=== PATIENT | male | born 1970 | race Caucasian/White ===

== ENCOUNTER 2019-08-29 09:13 | Emergency (ER) | payer MEDICAID, SELFPAY ==
--- NOTE | ~2019-08-29 | XR_ITS ---
EXAMINATION: XR chest 2V DATE: 08/29/2019 10:45 INDICATION: Shortness of breath. Epigastric abdominal pain. TECHNIQUE: Frontal and lateral views of the chest were obtained. COMPARISON: Chest 2 views 06/15/2013 FINDINGS: The chest demonstrates clear lungs without pneumonia, pleural effusion, or pneumothorax. Th e heart size is normal. There is chronic mild anterior wedging of a mid thoracic vertebral body. IMPRESSION: 1. No acute cardiopulmonary disease. Reviewed, dictated and finalized at location A.
--- NOTE | ~2019-08-29 | XR_ITS ---
EXAMINATION: XR abdomen/kub 1V INDICATION: Abdominal pain TECHNIQUE: Supine views of the abdomen were obtained on 2 radiographs. COMPARISON: 01/18/2016 FINDINGS: The bowel gas pattern is normal. No abnormal calcifications are identified. There are no di lated loops of bowel. The visualized osseous structures are unremarkable. IMPRESSION: 1. No radiographic correlate for the patient's symptoms. Reviewed, dictated and finalized at location A.
--- NOTE | 2019-08-29 09:16 | ECG_ITS ---
Measurements Intervals [place] Rate: 113 P: 55 DC: 122 QRS: 6 QRSD: 90 T: 29 QT: 302 QTc: 415 Interpretive Statements SINUS TACHYCARDIA POSSIBLE LEFT ATRIAL ENLARGEMENT NONSPECIFIC ST ELEVATION IN ANTEROLATERAL LEADS BASELINE ARTIFACT- V4, V6 ABNORMAL ECG Electronically Signed On 08-29-2019 10:37:48 CDT by Andreas Carrera D.O.
[2019-08-29 09:17] VITALS: BP 160/89; PULSE 120; RESP 19; O2SAT 100
--- NOTE | 2019-08-29 09:17 | ED.SOB ---
HPI - SOB/Dyspnea General Chief Complaint: Abdominal Pain Stated Complaint: UPPER ABD PAIN, FEELING SOB, FATIGUE Time Seen by Provider: 08/29/19 09:15 History of Present Illness HPI Narrative: Epigastric pain for the past month. Feels like pressure. Associated with bloating and early satiety. Today he also developed SOB. Related Data Home Medications Medication Instructions Recorded Confirmed allopurinol 08/29/19 indomethacin 08/29/19 08/29/19 lisinopril 08/29/19 omeprazole 20 mg PO DAILY 08/29/19 08/29/19 Allergies Allergy/AdvReac Type Severity Reaction Status Date / Time acetaminophen [From Vicodin] Allergy Rash Verified 08/29/19 09:23 hydrocodone [From Vicodin] Allergy Rash Verified 08/29/19 09:23 Review of Systems Review of Systems: All systems reviewed & are unremarkable except as noted in HPI and below Constitutional: Constitutional: Denies fever(s) ENT: Reports dizziness Cardiovascular: Cardiovascular: Denies chest pain Respiratory: Respiratory: Reports dyspnea Gastrointestinal: Gastrointestinal: Reports abdominal pain, Reports bloating, Denies constipation and Denies diarrhea Genitourinary: Genitourinary: Denies dysuria [facility] Past Medical History Medical History (Updated 08/30/19 @ 11:28 by Carmelo Raines MD) Gout HTN (hypertension) Social History Social History Gender identity (if verbalized by the patient): Male Exam Const: General: healthy appearing, no acute distress and alert Nutritional Appearance: well nourished Orientation/consciousness: patient oriented x3 HENMT: Mouth: Yes dry mucous membranes Chest: Chest palpation & inspection: normal inspection of the chest Resp: Effort & Inspection: normal respiratory effort Auscultation: clear to auscultation bilaterally Cardio: Rate: tachycardic Rhythm: regular rhythm GI: Inspection: non-distended GI Palp: Yes Soft to palpation and No Tenderness to palpation present (GI) Skin: General skin exam: normal color Neuro: General: patient oriented x3, moves all extremities, no focal motor deficits and CN's II-XI intact bilaterally Speech: normal speech Extrem: General: normal to inspection and no edema Course Vital Signs Vital signs: Vital Signs Pulse Rate 120 H 08/29/19 09:17 Respiratory Rate 19 08/29/19 09:17 Blood Pressure 160/89 H 08/29/19 09:17 Pulse Oximetry 100 08/29/19 09:17 Pulse Rate 94 08/29/19 14:10 Respiratory Rate 16 08/29/19 14:10 Blood Pressure 163/94 H 08/29/19 14:10 Pulse Oximetry 96 08/29/19 14:10 MDM - SOB/Dyspnea MDM Narrative Medical decision making narrative: Labs suggest dehydration. He also has hyperglycemia. He took a supplement with dextrose before coming in so this is difficult to inerpret. Improved with fluids. KUB wnl, does show some stool. Advised to reduce supplement use. Trial of stool softeners. follow-up with PCP for repeat labs. Medical Records Attestation: I reviewed the patient's medical records. Lab Data Attestation: I reviewed the patient's lab results. Result diagrams: 08/29/19 10:34 08/29/19 10:34 Labs: Lab Results 08/29/19 08/29/19 08/29/19 Range/Units 10:34 10:34 10:34 WBC 9.1 (4.5-10.0) K/mm3 RBC 5.78 (4.6-6.20) M/mm3 Hgb 17.7 (14.0-18.0) g/dL Hct 53.5 H (42.0-52.0) % MCV 92.6 (80-100) fl MCH 30.6 (26-34) pg MCHC 33.1 (32-36) g/dl RDW 14.0 (11.5-14.5) % Plt Count 373 (150-375) k/mm3 MPV 10.6 H (7.4-10.4) fl Immature Gran % (Auto) 0.3 (0-0.5) % Neut % (Auto) 57.4 (45.5-73.1) % Lymph % (Auto) 31.9 (18.3-44.2) % Crisp % (Auto) 7.8 (2.6-8.5) % Eos % (Auto) 2.2 (0-4.4) % Baso % (Auto) 0.4 (0.2-1.2) % Lymph # (Auto) 2.89 (0.9-3.2) K/mm3 Crisp # (Auto) 0.7 H (0.1-0.6) K/mm3 Eos # (Auto) 0.2 (0-0.3) K/mm3 Baso # (Auto) 0.0 (0.0-0.1) K/mm3 Abs Imm
[2019-08-29 10:45] LABS: Basophils Percent Auto 0.4 % (0.2-1.2); Eosinophils Absolute Auto 0.2 K/mm3 (0-0.3); Eosinophils Percent Auto 2.2 % (0-4.4); Hematocrit 53.5 % (42.0-52.0); Hemoglobin 17.7 g/dL (14.0-18.0); Immature Granulocyte Absolute 0.03 K/mm3 (0.00-0.031); Immature Granulocyte Percent A 0.3 % (0-0.5); Lymphocytes Absolute Auto 2.89 K/mm3 (0.9-3.2); Lymphocytes Percent Auto 31.9 % (18.3-44.2); Mean Corpuscular HGB Conc 33.1 g/dl (32-36); Mean Corpuscular Hemoglobin 30.6 pg (26-34); Mean Corpuscular Volume 92.6 fl (80-100); Mean Platelet Volume 10.6 fl (7.4-10.4); Monocytes Absolute Auto 0.7 K/mm3 (0.1-0.6); Monocytes Percent Auto 7.8 % (2.6-8.5); Neutrophils Absolute Auto 5.2 K/mm3 (1.3-6.7); Neutrophils Percent Auto 57.4 % (45.5-73.1); Platelet Count Result 373 k/mm3 (150-375); Red Blood Count 5.78 M/mm3 (4.6-6.20); White Blood Count 9.1 K/mm3 (4.5-10.0)
[2019-08-29 10:49] VITALS: BP 147/87; PULSE 105; RESP 12; O2SAT 99
[2019-08-29 10:56] LABS: Alanine Aminotransferase 53 U/L (4-50); Albumin Level 4.3 g/dL (3.5-5.1); Alkaline Phosphatase 84 U/L (38-126); Aspartate Amino Transferase 40 U/L (17-59); Bilirubin,Total 1.2 mg/dL (0.2-1.3); Blood Urea Nitrogen 16 mg/dL (9-20); Calcium 10.2 mg/dL (8.4-10.2); Carbon Dioxide 26 mmol/L (22-30); Chloride 98 mmol/L (98-107); Estimated CRCL calculation 58 ml/min; Estimated Glomerular Filt Rate 54; Glucose 188 mg/dL (75-110); INR 0.9; Lipase 138 U/L (23-300); Potassium 4.5 mmol/L (3.4-5.0); Prothrombin Time 12.3 Seconds (11.1-14.7); Sodium 135 mmol/L (137-145)
[2019-08-29 10:57] LABS: Partial Thromboplastin Time 23.5 SECONDS (22.3-36.8)
[2019-08-29 11:08] LABS: Troponin I < 0.012 ng/mL (0.000-0.034)
[2019-08-29 11:10] LABS: D Dimer 0.27 ug/mL (<0.48)
[2019-08-29] MEDS: SODIUM CHLORIDE 0.9% IV 1,000 ML 999 ML IV CONT (12:07)
[2019-08-29 12:08] VITALS: BP 151/81; PULSE 100; RESP 15; O2SAT 95
[2019-08-29 13:26] VITALS: BP 154/94; PULSE 99; RESP 22; O2SAT 96
[2019-08-29 13:30] LABS: Glucose Point of Care 137 (65-105)
[2019-08-29 14:10] VITALS: BP 163/94; PULSE 94; RESP 16; O2SAT 96
== END 2019-08-29 14:29 | disposition home or self-care (01) ==
PROVIDERS: Emergency Provider Emergency Medicine; PCP Internal Medicine
DX: R10.13 Epigastric pain (principal); R73.9 Hyperglycemia, unspecified; I10 Essential (primary) hypertension; M10.9 Gout, unspecified
CPT/HCPCS: 36415; 71046; 74018; 80053; 82948; 83690; 84484; 85025; 85380; 85610; 85730; 86850; 86900; 86901; 93005; 96360; 99284; J7030

== ENCOUNTER 2019-09-16 14:39 | Outpatient (CLI) | payer MEDICAID, SELFPAY ==
--- NOTE | ~2019-09-16 | CT_ITS ---
EXAMINATION: CT abdomen pelvis wo con DATE: 09/16/2019 15:06 INDICATION: Several weeks of diffuse abdominal pain TECHNIQUE: Computed tomography (CT) of the abdomen and pelvis was performed without intravenous contr ast. Automated exposure control and iterative reconstruction technique were employed. The dose-length product was 582.93 mGy-cm. COMPARISON: None FINDINGS: Lung bases are clear. Heart size is normal. No pericardial or pleural effusion. Liver, gallbladder, s pleen, pancreas, bilateral adrenal glands and kidneys are normal. A radiodense pill is present in the cecum. Bowels including the appendix are normal. No obstruction. Bladder is normal. No free intraper itoneal gas or fluid. No pathologically enlarged abdominal or pelvic lymphadenopathy. Moderate right and mild to moderate left hip osteoarthritis. Mild lumbar and moderate lower thoracic spondylosis IMPRESSION: 1. No acute intra-abdominal/pelvic process. Reviewed, dictated and finalized at location A.
== END 2019-09-16 14:40 | disposition home or self-care (01) ==
LOC: ANHIMG 14:42
PROVIDERS: PCP Internal Medicine; Visit Provider Internal Medicine
DX: R10.9 Unspecified abdominal pain (principal)
CPT/HCPCS: 74176

== ENCOUNTER 2020-01-23 03:40 | Emergency (ER) | payer OTHER, SELFPAY ==
[2020-01-23 03:43] VITALS: BP 160/84; PULSE 90; RESP 16; TEMP 36.6; O2SAT 97
--- NOTE | 2020-01-23 04:12 | ED.EAR ---
HPI - Ear Problem General Chief complaint: Ear Stated complaint: possible FB in ear Time Seen by Provider: 01/23/20 03:52 History of Present Illness HPI Narrative: Around noon yesterday he pulled his headphones from his ears and noted that the right one did not have the tip on it. Later in the day he was having some pain in that ear and developed a headache. He decided that the tip must still be in the ear so He came in. Related Data Home Medications Medication Instructions Recorded Confirmed allopurinol 08/29/19 indomethacin 08/29/19 08/29/19 lisinopril 08/29/19 omeprazole 20 mg PO DAILY 08/29/19 08/29/19 Allergies Allergy/AdvReac Type Severity Reaction Status Date / Time hydrocodone [From Vicodin] Allergy Rash Verified 01/23/20 03:49 Review of Systems Review of Systems: All systems reviewed & are unremarkable except as noted in HPI and below Constitutional: Constitutional: Denies fever(s) ENT: Denies dizziness Cardiovascular: Cardiovascular: Denies chest pain Respiratory: Respiratory: Denies dyspnea Gastrointestinal: Gastrointestinal: Denies nausea and Denies vomiting Neurologic: Reports headache(s) [facility] Past Medical History Medical History Gout HTN (hypertension) Social History Social History Gender identity (if verbalized by the patient): Male Exam Const: General: no acute distress and alert Orientation/consciousness: patient oriented x3 HENMT: Ears: Abnormal EAC present cerumen impaction on the right Eyes: Conjunctivae: conjunctivae normal Pupils: Equal, round and reactive pupils present EOM: EOMs intact bilaterally Neck: Neck: normal visual inspection Resp: Effort & Inspection: normal respiratory effort Skin: General skin exam: normal color Neuro: General: patient oriented x3, moves all extremities and CN's II-XI intact bilaterally Cranial nerves: Yes Nystagmus not present Speech: normal speech Course Vital Signs Vital signs: Vital Signs Temperature 36.6 C 01/23/20 03:43 Pulse Rate 90 01/23/20 03:43 Respiratory Rate 16 01/23/20 03:43 Blood Pressure 160/84 H 01/23/20 03:43 Pulse Oximetry 97 01/23/20 03:43 Temperature 36.6 C 01/23/20 03:43 Pulse Rate 90 01/23/20 03:43 Respiratory Rate 16 01/23/20 03:43 Blood Pressure 160/84 H 01/23/20 03:43 Pulse Oximetry 97 01/23/20 03:43 Procedures Ear Wax Removal Both Ears: Cerumenolytic Used: other (tap water) Results: Re-examined: cerumen removed completely TM Examination: TM(s) intact, normal appearance Ear Canal Exam: atraumatic Patient Tolerated Procedure: well Complications: no problems Technique: ear canal irrigated Medical Decision Making Vital Signs Vital Signs: Vital Signs Temperature 36.6 C 01/23/20 03:43 Pulse Rate 90 01/23/20 03:43 Respiratory Rate 16 01/23/20 03:43 Blood Pressure 160/84 H 01/23/20 03:43 Pulse Oximetry 97 01/23/20 03:43 Temperature 36.6 C 01/23/20 03:43 Pulse Rate 90 01/23/20 03:43 Respiratory Rate 16 01/23/20 03:43 Blood Pressure 160/84 H 01/23/20 03:43 Pulse Oximetry 97 01/23/20 03:43 Discharge Plan Discharge Clinical Impression: Bilateral impacted cerumen Patient Disposition: Home, Self-Care Condition: Stable Instructions: Earache (ED) Prescriptions: No Action indomethacin 50 mg capsule RF: 0 allopurinol 300 mg tablet RF: 0 lisinopril 40 mg tablet RF: 0 omeprazole 20 mg Tablet,Delayed Release (Dr/Ec) 20 mg PO DAILY RF: 0 metformin 500 mg tablet 500 mg PO DAILY Qty: 14 RF: 0 Follow-up/Referrals: Enrike,Coretta Dorman MD [Primary Care Provider] -
== END 2020-01-23 04:52 | disposition home or self-care (01) ==
PROVIDERS: Emergency Provider Emergency Medicine; PCP Internal Medicine
DX: H61.23 Impacted cerumen, bilateral (principal); I10 Essential (primary) hypertension; M10.9 Gout, unspecified
CPT/HCPCS: 69209; 99282

== ENCOUNTER 2020-01-26 09:02 | Emergency (ER) | payer OTHER, SELFPAY ==
[2020-01-26] VITALS (37 sets, daily range): BP systolic 137–164; BP diastolic 81–98; PULSE 65–84; RESP 10–25; TEMP 36.1; O2SAT 95–100
--- NOTE | ~2020-01-26 | CT_ITS ---
EXAMINATION: CT brain wo con DATE: 01/26/2020 09:53 INDICATION: Headache. TECHNIQUE: Computed tomography (CT) of the head was performed without intravenous contrast. The mA wa s adjusted according to patient size. Iterative reconstruction technique was employed. The dose-lengt h product was 529.67 mGy-cm. COMPARISON: Head CT 06/15/2013 FINDINGS: There is no intracranial hemorrhage, acute infarction, or abnormal intracranial mass lesion . The ventricles are normal in size. The orbits are normal. Right maxillary sinus is small. There is mucosal thickening in the paranasal sinuses, right worse than left. The mastoid air cells are normal. The orbits are normal. IMPRESSION: 1. Normal brain. Reviewed, dictated and finalized at location A. IMPRESSION: 1. Normal brain.
--- NOTE | 2020-01-26 09:50 | PC.NURSE ---
could not draw blood at this time, pt is in ct.
--- NOTE | 2020-01-26 09:56 | PC.NURSE ---
PT IN CT ATT THIS TIME.
[2020-01-26 10:08] LABS: Basophils Percent Auto 0.3 % (0.2-1.2); Eosinophils Absolute Auto 0.3 K/mm3 (0-0.3); Eosinophils Percent Auto 3.5 % (0-4.4); Hematocrit 46.2 % (42.0-52.0); Hemoglobin 15.8 g/dL (14.0-18.0); Immature Granulocyte Absolute 0.02 K/mm3 (0.00-0.031); Immature Granulocyte Percent A 0.2 % (0-0.5); Lymphocytes Percent Auto 19.3 % (18.3-44.2); Mean Corpuscular HGB Conc 34.2 g/dl (32-36); Mean Corpuscular Hemoglobin 31.2 pg (26-34); Mean Corpuscular Volume 91.3 fl (80-100); Monocytes Absolute Auto 0.9 K/mm3 (0.1-0.6); Monocytes Percent Auto 9.3 % (2.6-8.5); Neutrophils Absolute Auto 6.3 K/mm3 (1.3-6.7); Neutrophils Percent Auto 67.4 % (45.5-73.1); Platelet Count Result 240 k/mm3 (150-375); Red Blood Count 5.06 M/mm3 (4.6-6.20); White Blood Count 9.3 K/mm3 (4.5-10.0)
[2020-01-26] MEDS: SODIUM CHLORIDE 0.9% IV 1,000 ML 999 ML IV CONT ×2 (10:14→12:10)
[2020-01-26] MEDS: KETOROLAC 15 MG/ML VIAL (*BKC) IV PUSH (10:15)
[2020-01-26 10:19] LABS: Alanine Aminotransferase 84 U/L (4-50); Albumin Level 4.1 g/dL (3.5-5.1); Alkaline Phosphatase 103 U/L (38-126); Anion Gap 5 mmol/L (8-16); Aspartate Amino Transferase 41 U/L (17-59); Bilirubin,Total 0.7 mg/dL (0.2-1.3); Blood Urea Nitrogen 24 mg/dL (9-20); Calcium 9.5 mg/dL (8.4-10.2); Carbon Dioxide 34 mmol/L (22-30); Chloride 97 mmol/L (98-107); Estimated CRCL calculation 80 ml/min; Estimated Glomerular Filt Rate > 60; Glucose 291 mg/dL (75-110); Potassium 5.7 mmol/L (3.4-5.0); Sodium 136 mmol/L (137-145)
[2020-01-26 10:29] LABS: Add Urine Microscopic? YES; Amorphous Sediment Urine Few; Appearance Urine Cloudy (Clear); Bilirubin Urine Negative (Negative); Blood Urine Negative (Negative); Color Urine Yellow (Yellow); Glucose Urine UA 3+ mg/dL (Negative); Ketones Urine Negative (Negative); Leukocyte Esterase Ur Negative LEU/UL (Negative); Mucus Urine Rare /lpf; Nitrate Urine Negative (Negative); Protein Urine Negative (Negative); RBC Urine 0-2 /hpf (0-2); Specific Grav Ur 1.028 (1.001-1.035); Urobilinogen Urine Negative mg/dL (<2.0)
[2020-01-26 10:43] LABS: Amphetamine Screen Urine Negative (Negative); Barbiturate Screen Urine Negative (Negative); Benzodiazepines Screen Urine Negative (Negative); Cannabinoid Screen Urine Negative (Negative); Cocaine Screen Urine Negative (Negative); Methadone Screen Urine Negative (Negative); Opiate Screen Urine Negative (Negative); Phencyclidine Screen Urine Negative (Negative)
[2020-01-26 11:38] LABS: Glucose Point of Care 247 (65-105)
--- NOTE | 2020-01-26 11:41 | PC.NURSE ---
SPOKE WITH BETHEL DAVIS ABOUT PT ELEVATED SUGAR, RECHECKED PT BS AT THIS TIME, BETHEL DAVIS INFORMED OF NEW SUGAR 247.
--- NOTE | 2020-01-26 11:43 | PC.NURSE ---
VERBAL ORDER FROM BETHEL DAVIS FOR ANOTHER 1L NS BOLUS.
--- NOTE | 2020-01-26 12:05 | PC.NURSE ---
BETHEL DAVIS REMINDED OF NEED TO GO SPEAK WITH PT ABOUT PLAN OF CARE.
[2020-01-26 12:10] LABS: Glucose 248 mg/dL (75-110)
[2020-01-26 13:08] LABS: Glucose Point of Care 206 (65-105)
--- NOTE | 2020-01-26 13:30 | PC.NURSE ---
MICHELL BARRIENTOS CONTACTED LAB AT THIS TIME TO ADD ON CMP, LAB CONFIRMS THAT THEY CAN RUN THE TEST.
[2020-01-26 14:43] LABS: Alanine Aminotransferase 77 U/L (4-50); Albumin Level 3.5 g/dL (3.5-5.1); Alkaline Phosphatase 84 U/L (38-126); Anion Gap 5 mmol/L (8-16); Aspartate Amino Transferase 41 U/L (17-59); Bilirubin,Total 0.6 mg/dL (0.2-1.3); Blood Urea Nitrogen 24 mg/dL (9-20); Calcium 8.9 mg/dL (8.4-10.2); Carbon Dioxide 33 mmol/L (22-30); Chloride 100 mmol/L (98-107); Estimated CRCL calculation 74 ml/min; Estimated Glomerular Filt Rate > 60; Glucose 186 mg/dL (75-110); Potassium 4.6 mmol/L (3.4-5.0); Sodium 138 mmol/L (137-145)
--- NOTE | 2020-01-26 15:14 | ED.GENADULT ---
HPI - General Adult General Chief complaint: Headache Stated complaint: headache Time Seen by Provider: 01/26/20 09:15 Source: patient Mode of arrival: ambulatory Limitations: no limitations History of Present Illness HPI narrative: Patient presents with chief complaint of headache over the past 4 days. Patient states in the beginning he also has some body aches and nausea. He denies chest pain or shortness of breath. He denies fever or chills. Patient denies productive cough. Patient states he has a history of hypertension but denies any other health issues. Patient states that he did travel to [place] 1 week ago and is unsure if he has any Covid contacts. Patient has not been tested for Covid. Patient states the headache is in the frontal region of his head and makes him photophobic. He denies loss of vision, flashes or floaters. Patient reports he does not typically have migraines so he would say this is the worst headache he has ever had. Related Data Home Medications Medication Instructions Recorded Confirmed allopurinol 08/29/19 indomethacin 08/29/19 08/29/19 lisinopril 08/29/19 omeprazole 20 mg PO DAILY 08/29/19 08/29/19 Allergies Allergy/AdvReac Type Severity Reaction Status Date / Time hydrocodone [From Vicodin] Allergy Rash Verified 01/23/20 03:49 Review of Systems Review of Systems: Narrative: CONSTITUTIONAL: Denies fever, chills, or sweats. EYES: Denies visual changes, redness, or discharge. ENT: Denies rhinorrhea, congestion, sore throat, or otalgia. CARDIOVASCULAR: Denies chest pain, palpitations, or edema. RESPIRATORY: Denies cough or dyspnea. GASTROINTESTINAL: Denies abdominal pain, nausea, vomiting, or diarrhea. GENITOURINARY: Denies dysuria or hematuria. SKIN: Denies rash or itching. MUSCULOSKELETAL: Denies back pain, myalgia, or joint pain NEUROLOGIC: Reports headache denies numbness, dizziness, or weakness. PSYCHIATRIC: Denies anxiety or depression. [facility] Past Medical History Medical History Gout HTN (hypertension) Social History Social History Gender identity (if verbalized by the patient): Male Course Vital Signs Vital signs: Vital Signs Pulse Rate 84 01/26/20 09:27 Respiratory Rate 25 H 01/26/20 09:27 Pulse Oximetry 97 01/26/20 09:27 Temperature 97.0 F L 01/26/20 10:09 Pulse Rate 69 01/26/20 13:15 Respiratory Rate 15 01/26/20 13:15 Blood Pressure 155/97 H 01/26/20 12:46 Pulse Oximetry 100 01/26/20 13:15 Medical Decision Making MDM Narrative Medical decision making narrative: Patient shows hyperglycemia on his CMP as well as hyperkalemia. Patient has received 2 L of fluid in his sodium and potassium are normalized. Patient blood sugar is now below 200. I have contacted his primary care doctor say wants the patient started on 500 mg daily Metformin. He asked that I give the patient 14 tablets so that he can adjust them as the patient gets an appointment to follow-up in his office. Patient reports his headache has improved from an emergency department. I have given him quarantine instructions to follow the health department guidelines as far as quarantine. I have informed him that he needs to follow-up with his primary care for Covid results. Patient instructed to return to emergency department if he has any emergent symptoms. Differential Diagnosis Differential Diagnosis: Hyperglycemia, DKA, flu, CVA, Covid, hyperkalemia Vital Signs Vital Signs: Vital Signs Pulse Rate 84 01/26/20 09:27 Respiratory Rate 25 H 01/26/20 09:27 Pulse Oximetry 97 01/26/20 09:27 Temperature 97.0 F L 01/26/20 10:09 Pulse Rate 69 01/26/20 13:15 Respiratory Rate 15 01/26/20 13:15 Blood Pressure 155/97 H 01/26/20 12:46 Pulse Oximetry 100 01/26/20 13:15 Lab Data Result diagrams: 01/26/20 10:03 01/26/20
[2020-01-26 16:30] LABS: SARS-CoV-2 RNA PCR Negative
== END 2020-01-26 15:42 | disposition home or self-care (01) ==
PROVIDERS: Physician Assistant; Emergency Provider Emergency Medicine; PCP Internal Medicine
DX: R51.9 Headache, unspecified (principal); E11.65 Type 2 diabetes mellitus with hyperglycemia; Z20.828 Contact with and (suspected) exposure to other viral communicable diseases; I10 Essential (primary) hypertension; M10.9 Gout, unspecified
CPT/HCPCS: 36415; 70450; 80053; 80307; 81001; 82947; 82948; 85025; 87635; 87804; 96361; 96374; 96375; 99284; C9803; J0131; J1885; J7030; U0003

== ENCOUNTER 2020-05-24 07:47 | Outpatient (CLI) | payer OTHER, SELFPAY ==
[2020-05-24 08:16] LABS: Hemoglobin A1C 6.7 % (<5.7)
== END 2020-05-24 07:48 | disposition home or self-care (01) ==
PROVIDERS: PCP Internal Medicine; Visit Provider Orthopaedic Surgery
DX: E11.9 Type 2 diabetes mellitus without complications (principal)
CPT/HCPCS: 36415; 83036

== ENCOUNTER → 2021-01-17 13:32 | Outpatient (REF) | payer OTHER, SELFPAY | LOC: ANHLAB 13:32 | PROVIDERS: PCP Internal Medicine; Visit Provider Nurse Practitioner | DX: L81.4 Other melanin hyperpigmentation (principal) | CPT/HCPCS: 88305 ==

== ENCOUNTER 2021-04-26 11:02 | Emergency (ER) | payer OTHER, SELFPAY ==
--- NOTE | ~2021-04-26 | CT_ITS ---
EXAMINATION: CT abdomen pelvis wo con EXAM DATE: 04/26/2021 12:25 INDICATION: right flank pain . TECHNIQUE: Spiral CT of the abdomen and pelvis was performed without contrast. Axial, coronal and sag ittal images were reviewed. The dose-length product (DLP) for this examination was 504.06 mGy-cm. T he exposure was tailored according to patient size (auto mA exposure control), and iterative reconstr uction (ASIR) was used as additional dose reduction technique. Comparison is made to prior examinatio n from 09/16/2019. FINDINGS: There is no nephrolithiasis or hydronephrosis. The prostate is unremarkable. The bladder is unremarkable. The liver, spleen, adrenal glands and pancreas are unremarkable. Gallbladder is u nremarkable. No biliary obstruction. There is no retroperitoneal or pelvic lymphadenopathy. There is mild scattered arteriosclerotic disease. There are no findings to suggest appendicitis. The stomach and small bowel are unremarkable. There is moderate amount of colonic stool. No free intraperitoneal gas. The heart is normal in size. T here are no pericardial or pleural effusions. The lung bases are unremarkable. The bones are unrema rkable. IMPRESSION: 1. Moderate amount of colonic stool. 2. No nephrolithiasis, hydronephrosis or acute intra-abdominal findings. Reviewed, dictated and finalized at location A. HOME CARE
[2021-04-26 11:12] VITALS: BP 150/77; PULSE 101; RESP 17; TEMP 36.6; O2SAT 100
[2021-04-26 11:33] LABS: Basophils Absolute Auto 0.1 K/mm3 (0.0-0.1); Basophils Percent Auto 0.4 % (0.2-1.2); Eosinophils Absolute Auto 0.2 K/mm3 (0-0.3); Eosinophils Percent Auto 1.7 % (0-4.4); Hematocrit 49.4 % (42.0-52.0); Hemoglobin 16.5 g/dL (14.0-18.0); Immature Granulocyte Absolute 0.07 K/mm3 (0.00-0.031); Immature Granulocyte Percent A 0.5 % (0-0.5); Immature Platelet Fraction Pct 4.9 % (0.9-11.2); Lymphocytes Absolute Auto 3.62 K/mm3 (0.9-3.2); Lymphocytes Percent Auto 26.9 % (18.3-44.2); Mean Corpuscular HGB Conc 33.4 g/dl (32-36); Mean Corpuscular Hemoglobin 30.4 pg (26-34); Mean Corpuscular Volume 91.1 fl (80-100); Mean Platelet Volume 9.8 fl (7.4-10.4); Monocytes Absolute Auto 0.9 K/mm3 (0.1-0.6); Monocytes Percent Auto 6.5 % (2.6-8.5); Neutrophils Absolute Auto 8.6 K/mm3 (1.3-6.7); Platelet Count Result 417 k/mm3 (150-375); Red Blood Count 5.42 M/mm3 (4.6-6.20); Red Cell Distribution Width 13.8 % (11.5-14.5); White Blood Count 13.5 K/mm3 (4.5-10.0)
[2021-04-26 11:42] LABS: Alanine Aminotransferase 45 U/L (4-50); Albumin Level 4.2 g/dL (3.5-5.1); Alkaline Phosphatase 85 U/L (38-126); Anion Gap 10 mmol/L (8-16); Aspartate Amino Transferase 37 U/L (17-59); Bilirubin,Total 1.5 mg/dL (0.2-1.3); Blood Urea Nitrogen 16 mg/dL (9-20); Carbon Dioxide 29 mmol/L (22-30); Chloride 93 mmol/L (98-107); Estimated CRCL calculation 62 ml/min; Estimated Glomerular Filt Rate 59; Glucose 170 mg/dL (65-110); Lipase 573 U/L (23-300); Potassium 5.4 mmol/L (3.4-5.0); Sodium 132 mmol/L (137-145)
[2021-04-26 11:44] LABS: Add Urine Microscopic? YES; Appearance Urine Clear (Clear); Bilirubin Urine Negative (Negative); Blood Urine Negative (Negative); Color Urine Yellow (Yellow); Glucose Urine UA Negative (Negative); Ketones Urine Trace mg/dL (Negative); Leukocyte Esterase Ur Negative LEU/UL (Negative); Mucus Urine Rare /lpf; Nitrate Urine Negative (Negative); Protein Urine 1+ mg/dL (Negative); RBC Urine 0-2 /hpf (0-2); Specific Grav Ur 1.021 (1.001-1.035); Squamous Epithelial Cell Urine Rare /hpf (Few); WBC Urine 0-3 /hpf
[2021-04-26] MEDS: KETOROLAC 15 MG/ML VIAL (*BKC) IV PUSH (13:38)
[2021-04-26] MEDS: ONDANSETRON INJ 4 MG/2 ML VIAL IV PUSH (13:38)
[2021-04-26 14:33] VITALS: BP 115/75; PULSE 78; RESP 15; O2SAT 100
--- NOTE | 2021-04-26 16:40 | ED.GENADULT ---
HPI - General Adult General Chief complaint: Abdominal Pain Stated complaint: back pain/abd Time Seen by Provider: 04/26/21 11:40 Source: patient Mode of arrival: ambulatory Limitations: no limitations History of Present Illness HPI narrative: Patient is a 50-year-old male with hepatitis C presenting with chief complaint of pain to the right lower quadrant and right upper quadrant accompanied by nausea for 3 days. Patient denies any fever, chills, vomiting or diarrhea. Patient reports he has had a bowel movement yesterday that was normal. Patient reports that the pain feels deep in his stomach is not tender to touch. Patient reports that he has not had any urinary symptoms. He denies any other symptoms. Related Data Home Medications Medication Instructions Recorded Confirmed lisinopril 08/29/19 omeprazole 20 mg PO DAILY 08/29/19 08/29/19 semaglutide 0.25 mg SUBCUT WEEKLY 01/17/21 Allergies Allergy/AdvReac Type Severity Reaction Status Date / Time hydrocodone [From Vicodin] Allergy Rash Verified 01/17/21 13:15 Review of Systems Review of Systems: CONSTITUTIONAL: Denies fever, chills, or sweats. EYES: Denies visual changes, redness, or discharge. ENT: Denies rhinorrhea, congestion, sore throat, or otalgia. CARDIOVASCULAR: Denies chest pain, palpitations, or edema. RESPIRATORY: Denies cough or dyspnea. GASTROINTESTINAL: Reports abdominal pain, nausea, denies vomiting, or diarrhea. GENITOURINARY: Denies dysuria or hematuria. SKIN: Denies rash or itching. MUSCULOSKELETAL: Denies back pain, joint pain, or myalgia. NEUROLOGIC: Denies headache, numbness, dizziness, or weakness. PSYCHIATRIC: Denies anxiety or depression. [facility] Past Medical History Medical History Gout HTN (hypertension) Family History Family History (Updated 01/17/21 @ 13:18 by Rosalind Powell CMA) Other Diabetes mellitus Hypertension Social History Social History (Updated 01/17/21 @ 13:23 by Rosalind Powell CMA) Smoking status: Never smoker Alcohol intake: never Substance use: never Substance use type: does not use Gender identity (if verbalized by the patient): Male Exam Narrative: GENERAL: Well-appearing, well-nourished, and in no acute distress. HEAD: Normocephalic, atraumatic. EYES: PERRLA and EOMI. CHEST: Clear to auscultation. No respiratory distress. No wheezes rales or rhonchi. No CVA tenderness. HEART: Regular rate and rhythm. ABDOMEN: Soft, nontender with palpation, nondistended, normal active bowel sounds. EXTREMITIES: Normal range of motion. No edema. SKIN: Warm, dry, no rash. NEURO: No focal deficits. Alert and oriented x3. PSYCH: Normal mood and affect. Course Vital Signs Vital signs: Vital Signs Temperature 97.9 F 04/26/21 11:12 Pulse Rate 101 H 04/26/21 11:12 Respiratory Rate 17 04/26/21 11:12 Blood Pressure 150/77 H 04/26/21 11:12 Pulse Oximetry 100 04/26/21 11:12 Temperature 97.9 F 04/26/21 11:12 Pulse Rate 78 04/26/21 14:33 Respiratory Rate 15 04/26/21 14:33 Blood Pressure 115/75 04/26/21 14:33 Pulse Oximetry 100 04/26/21 14:33 Medical Decision Making MDM Narrative Medical decision making narrative: Patient denies alcoholic intake. No findings on patient CT to suggest cause of his symptoms. Patient does have elevated lipase but no vomiting or reproducible abdominal pain.Discussed patient with Dr Hernadez. States patient is okay to go home and f/u with his PCP. He should RTER if he has worsening pain, fever, chills, or vomiting. Differential Diagnosis Differential Diagnosis: Diverticulitis, pancreatitis, kidney stone Vital Signs Vital Signs: Vital Signs Temperature 97.9 F 04/26/21 11:12 Pulse Rate 101 H 04/26/21 11:12 Respiratory Rate 17 04/26/21 11:12 Blood Pressure 150/77 H 04/26/21 11:12 Pulse Oximetry 100 04/26/21 11:12 Temperature 97.9 F 04/26/21 11:12 Puls
== END 2021-04-26 14:35 | disposition home or self-care (01) ==
PROVIDERS: Emergency Provider Emergency Medicine; PCP Internal Medicine
DX: R10.84 Generalized abdominal pain (principal); M10.9 Gout, unspecified; I10 Essential (primary) hypertension; B19.20 Unspecified viral hepatitis C without hepatic coma
CPT/HCPCS: 36415; 74176; 80053; 81001; 83690; 85025; 85055; 96374; 96375; 99284; J1885; J2405

== ENCOUNTER 2021-12-27 11:38 | Emergency (ER) | payer OTHER, SELFPAY ==
[2021-12-27] VITALS (12 sets, daily range): BP systolic 107–161; BP diastolic 72–82; PULSE 62–77; RESP 11–16; TEMP 36.9; O2SAT 98–100
--- NOTE | 2021-12-27 11:39 | ECG_ITS ---
Measurements Intervals [place] Rate: 63 P: 49 RI: 143 QRS: 14 QRSD: 89 T: 12 QT: 370 QTc: 381 Interpretive Statements SINUS RHYTHM BORDERLINE R WAVE PROGRESSION, ANTERIOR LEADS NONSPECIFIC ST ELEVATION IN ANT/HIGH LAT LEADS BORDERLINE ECG COMPARED TO ECG 08/29/2019 09:24:12 HEART RATE DECREASED Electronically Signed On 12-28-2021 20:14:18 CDT by Andreas Carrera D.O.
[2021-12-27 11:57] LABS: Glucose Point of Care 119 mg/dl (65-105)
[2021-12-27 12:03] LABS: Basophils Absolute Auto 0.1 K/mm3 (0.0-0.1); Basophils Percent Auto 0.5 % (0.2-1.2); Eosinophils Absolute Auto 0.1 K/mm3 (0-0.3); Eosinophils Percent Auto 1.3 % (0-4.4); Hematocrit 49.5 % (42.0-52.0); Hemoglobin 16.8 g/dL (14.0-18.0); Immature Granulocyte Absolute 0.02 K/mm3 (0.00-0.031); Immature Granulocyte Percent A 0.2 % (0-0.5); Lymphocytes Absolute Auto 3.08 K/mm3 (0.9-3.2); Lymphocytes Percent Auto 33.5 % (18.3-44.2); Mean Corpuscular HGB Conc 33.9 g/dl (32-36); Mean Corpuscular Hemoglobin 30.9 pg (26-34); Mean Corpuscular Volume 91.2 fl (80-100); Mean Platelet Volume 10.6 fl (7.4-10.4); Monocytes Absolute Auto 0.6 K/mm3 (0.1-0.6); Monocytes Percent Auto 6.9 % (2.6-8.5); Neutrophils Absolute Auto 5.3 K/mm3 (1.3-6.7); Neutrophils Percent Auto 57.6 % (45.5-73.1); Platelet Count Result 267 k/mm3 (150-375); Red Blood Count 5.43 M/mm3 (4.6-6.20); Red Cell Distribution Width 12.7 % (11.5-14.5); White Blood Count 9.2 K/mm3 (4.5-10.0)
[2021-12-27 12:14] LABS: Alanine Aminotransferase 251 U/L (6-50); Albumin Level 4.5 g/dL (3.5-5.1); Alkaline Phosphatase 62 U/L (38-126); Anion Gap 14 mmol/L (8-16); Aspartate Amino Transferase 168 U/L (17-59); Bilirubin,Total 1.5 mg/dL (0.2-1.3); Blood Urea Nitrogen 31 mg/dL (9-20); Calcium 9.8 mg/dL (8.4-10.2); Carbon Dioxide 19 mmol/L (22-30); Chloride 99 mmol/L (98-107); Estimated CRCL calculation 67 ml/min; Estimated Glomerular Filt Rate 58; Glucose 122 mg/dL (65-110); Potassium 4.8 mmol/L (3.4-5.0); Sodium 132 mmol/L (137-145)
[2021-12-27] MEDS: SODIUM CHLORIDE 0.9% IV 1,000 ML 999 ML IV CONT (13:10)
--- NOTE | 2021-12-27 13:15 | ED.RECABL ---
HPI - Recheck/Abnormal Lab/Rx General Chief Complaint: Recheck/Abnormal Lab/Rx Stated Complaint: Potassium in 6's per lab draw yesterday Time Seen by Provider: 12/27/21 12:34 Source: patient and RN notes reviewed Mode of arrival: ambulatory Limitations: no limitations History of Present Illness HPI narrative: This is 51 year old male who presents for evaluation of an elevated potassium. Patient has hepatitis C so he had labs drawn at [facility], and he was told today his potassium was 6. Patient states 2 weeks ago he suffered a right groin strain. He had been taking naproxen and aleve for his pain. He developed 3 days of nausea and dry heaves 6 days ago. He denies fever, chills, abdominal pain, diarrhea. He denies having nausea or vomiting in a few days now. He has continued to fast even though he feels well. HE states he fast for 16 hours a day. He denies lightheadedness or dizziness. He takes a number of supplements for his work out routine. HE denies anabolic steroid use or testosterone use. He states he drinks an energy drink that contains potassium. Related Data Home Medications Medication Instructions Recorded Confirmed lisinopril 40 mg tablet 08/29/19 omeprazole 20 mg tablet,delayed 20 mg PO DAILY 08/29/19 08/29/19 release semaglutide 0.25 mg or 0.5 mg (2 0.25 mg subcut WEEKLY 01/17/21 mg/1.5 mL) subcutaneous pen injector (Ozempic) Allergies Allergy/AdvReac Type Severity Reaction Status Date / Time hydrocodone [From Vicodin] Allergy Rash Verified 12/27/21 11:48 Review of Systems Review of Systems: All systems reviewed & are unremarkable except as noted in HPI and below Constitutional: Constitutional: Denies chills, Denies fatigue and Denies fever(s) Cardiovascular: Cardiovascular: Denies chest pain and Denies rapid heart rate Respiratory: Respiratory: Denies chest congestion and Denies cough Gastrointestinal: Gastrointestinal: Reports abdominal pain, Reports nausea and Reports vomiting Genitourinary: Genitourinary: Denies hematuria Musculoskeletal: Musculoskeletal: Denies back pain and Denies myalgias [facility] Past Medical History Medical History (Updated 12/27/21 @ 21:11 by Tania Rick MD) Gout Hepatitis C HTN (hypertension) Surgical History Surgical History (Updated 12/27/21 @ 21:12 by Tania Rick MD) History of surgery on arm Family History Family History (Updated 01/17/21 @ 13:18 by Rosalind Powell [facility]) Other Diabetes mellitus Hypertension Social History Social History (Updated 01/17/21 @ 13:23 by Rosalind Powell [facility]) Smoking status: Never smoker Alcohol intake: never Substance use: never Substance use type: does not use Gender identity (if verbalized by the patient): Male Exam Narrative: GENERAL: Well-appearing, well-nourished, and in no acute distress. HEAD: Normocephalic, atraumatic EYES: PERRLA and EOMI, conjunctiva clear without discharge THROAT:Mucous membranes moist, Oropharynx normal without erythema, exudate, peritonsillar swelling or fluctuance NECK: Supple, without lymphadenopathy or mass RESPIRATORY: No respiratory distress, Airway patent, Respirations non-labored, Clear to auscultation without rales, rhonchi or wheeze HEART: Regular rate and rhythm. No murmur heard. Normal peripheral pulses. ABDOMEN: Soft, nontender, nondistended, normal active bowel sounds. No masses. No rebound or guarding, No organomegaly. EXTREMITIES: No edema, normal strength with full range of motion. SKIN: Warm, dry, normal color without rash NEURO: Alert and oriented x3. CN 2-12 grossly intact. No focal deficits. PSYCH: Normal mood and affect. Const: General: no acute distress and alert Course Reevaluation(s) Reevaluation #1: I reviewed labs with patient. Labs shows transaminitis , hyponatremia with normal potassium. He is likely dehydrated. HE will hold his supplements Date: 12/27/21 Time: 14:21 Vital Signs Vital signs:
[2021-12-27 13:36] LABS: Creatine Kinase 279 U/L (55-170)
[2021-12-27 13:38] LABS: Appearance Urine Clear (Clear); Bilirubin Urine 1+ (Negative); Blood Urine Negative (Negative); Color Urine Yellow (Yellow); Glucose Urine UA Negative (Negative); Ketones Urine 2+ mg/dL (Negative); Leukocyte Esterase Ur Negative LEU/UL (Negative); Nitrate Urine Negative (Negative); Protein Urine Negative (Negative); Specific Grav Ur 1.015 (1.001-1.035)
[2021-12-27 13:41] LABS: INR 1.1; Prothrombin Time 13.4 Seconds (11.1-14.7)
[2021-12-27 13:42] LABS: Partial Thromboplastin Time 28.8 SECONDS (22.3-36.8)
[2021-12-27 13:46] LABS: Mucus Urine Rare /lpf; RBC Urine 0-2 /hpf (0-2); WBC Urine 0-3 /hpf
[2021-12-27 13:57] LABS: Add Urine Microscopic? YES
== END 2021-12-27 15:15 | disposition home or self-care (01) ==
PROVIDERS: Emergency Medicine; Emergency Provider General Practice; PCP Internal Medicine
DX: E86.0 Dehydration (principal); R74.01 Elevation of levels of liver transaminase levels; I10 Essential (primary) hypertension; M10.9 Gout, unspecified; Z86.19 Personal history of other infectious and parasitic diseases; R94.31 Abnormal electrocardiogram [ECG] [EKG]
CPT/HCPCS: 36415; 80053; 81001; 82550; 82948; 85025; 85610; 85730; 93005; 96360; 99283; J7030

== ENCOUNTER 2022-10-08 07:13 | Inpatient (IN) | payer OTHER, SELFPAY ==
[2022-10-08] VITALS (27 sets, daily range): BP systolic 167–208; BP diastolic 90–117; PULSE 78–118; RESP 14–22; TEMP 36.2–36.9; O2SAT 95–100; BMI 29.6
--- NOTE | ~2022-10-08 | US_ITS ---
EXAMINATION: US right upper quadrant DATE: 10/08/2022 15:20 INDICATION: pancreatitis TECHNIQUE: Multiple grayscale and Doppler ultrasound images of the right upper quadrant were obtained . COMPARISON: CT abdomen pelvis, same date. FINDINGS: The visualized portions of the pancreas are enlarged, with heterogeneous echogenicity. The liver is normal with normal echogenicity and echotexture. No surface nodularity. Normal hepatopetal f low in the main portal vein. The gallbladder is normal with no abnormal wall thickening, pericholecys tic fluid or stones, noting that the left lateral decubitus view was not obtainable. The common bile duct measures 4 mm. There was no sonographic Garcia sign. IMPRESSION: Pancreatic findings consistent with acute pancreatitis. Otherwise normal right upper quadrant ultrasound findings. Reviewed, dictated and finalized at location K.
--- NOTE | ~2022-10-08 | CT_ITS ---
EXAMINATION: CT abdomen pelvis w con DATE: 10/08/2022 08:27 INDICATION: Periumbilical abdominal pain. Right lower quadrant abdominal pain. TECHNIQUE: Computed tomography (CT) of the abdomen and pelvis was performed with 100 mL Omnipaque 350 intravenous contrast. Automated exposure control and iterative reconstruction technique were employe d. The dose-length product was 717.09 mGy-cm. COMPARISON: CT abdomen and pelvis 04/26/2021 FINDINGS: The visualized portions of the lung bases demonstrate minimal atelectasis. No pleural effus ion. The heart size is normal. No pericardial effusion. The liver, gallbladder, spleen, and adrenal g lands are normal. There is fat stranding and fluid around the pancreas, consistent with acute interst itial pancreatitis. The pancreas enhances throughout. There is a 1 mm stone in right kidney. There ar e cysts in the kidneys measuring up to 5 mm on the right. There are no dilated loops of bowel. The ap pendix is normal. There are no pathologically enlarged lymph nodes. There is a right hip arthroplasty . There is mild thoracolumbar spondylosis. IMPRESSION: 1. Acute interstitial pancreatitis. Reviewed, dictated and finalized at location A.
--- NOTE | ~2022-10-08 | XR_ITS ---
EXAMINATION: XR chest 1V portable Exam Date/Time: 10/08/2022 20:13 CDT HISTORY: elevated Trop Comparison: 08/29/2019. RESULT: Lines, tubes, and devices: None. Lungs and pleura: Low lung volumes with crowding. Otherwise clear. Cardiomediastinal silhouette: Stable. Other: No acute osseous or upper abdominal finding. IMPRESSION: No acute cardiopulmonary process. Reviewed, dictated and finalized at location K.
[2022-10-08 07:30] LABS: Basophils Absolute Auto 0.1 K/mm3 (0.0-0.1); Basophils Percent Auto 0.3 % (0.2-1.2); Eosinophils Percent Auto 0.3 % (0-4.4); Hematocrit 49.2 % (42.0-52.0); Hemoglobin 15.7 g/dL (14.0-18.0); Immature Granulocyte Absolute 0.07 K/mm3 (0.00-0.031); Immature Granulocyte Percent A 0.5 % (0-0.5); Lymphocytes Absolute Auto 1.98 K/mm3 (0.9-3.2); Lymphocytes Percent Auto 12.7 % (18.3-44.2); Mean Corpuscular HGB Conc 31.9 g/dl (32-36); Mean Corpuscular Hemoglobin 29.3 pg (26-34); Mean Corpuscular Volume 91.8 fl (80-100); Mean Platelet Volume 9.9 fl (7.4-10.4); Monocytes Absolute Auto 1.2 K/mm3 (0.1-0.6); Monocytes Percent Auto 7.4 % (2.6-8.5); Neutrophils Absolute Auto 12.3 K/mm3 (1.3-6.7); Neutrophils Percent Auto 78.8 % (45.5-73.1); Platelet Count Result 471 k/mm3 (150-375); Red Blood Count 5.36 M/mm3 (4.6-6.20); Red Cell Distribution Width 15.2 % (11.5-14.5); White Blood Count 15.5 K/mm3 (4.5-10.0)
--- NOTE | 2022-10-08 07:38 | ED.ABDPAIN ---
HPI - Abdominal Pain General Chief Complaint: Abdominal Pain Stated Complaint: abdominal and back pain Time Seen by Provider: 10/08/22 07:16 History of Present Illness HPI narrative: Patient is a 52-year-old male with a history of diabetes, hypertension presenting with abdominal pain. Patient states that about 2 hours ago he developed severe periumbilical pain that radiates into his back. States he is never had pain like this before. No nausea or vomiting. No diarrhea or constipation. No dysuria or hematuria. No fevers, chest pain, shortness of breath, cough. Denies further complaints. Related Data Home Medications Medication Instructions Recorded Confirmed famotidine 20 mg tablet 20 mg PO BID 10/08/22 10/08/22 Allergies Allergy/AdvReac Type Severity Reaction Status Date / Time hydrocodone [From Vicodin] Allergy Rash Verified 10/08/22 07:18 Review of Systems Review of Systems: All systems reviewed & are unremarkable except as noted in HPI and below PMFSH Past Medical History Medical History Diabetes Gout Hepatitis C treated HTN (hypertension) Surgical History Surgical History H/O shoulder surgery bilateral rotator cuff repairs H/O total hip arthroplasty right in July 2022 History of surgery on arm left bicep Family History Family History Mother Hypertension Diabetes mellitus Social History Social History Social History: Lifelong nonsmoker. No history of drug use. Denies alcohol use. Lives with his significant other. He is a full code. He nominates his significant other to be the individual to make medical decisions for him if he is unable. Smoking status: Never smoker Alcohol intake: never Substance use: never Substance use type: does not use Lack of Transportation: No Lack of Food: Never True Current Housing: I Have Housing Concerned About Future Housing: No Difficulty Paying Gas/Electric Bills: No Difficulty Paying for Meds: No Currently Unemployed: YES Education: High School Diploma/GED Difficulty w/ Childcare or Family Care: No Gender identity (if verbalized by the patient): Male Spiritual care concerns: No Exam Narrative: GENERAL: Moderately distressed secondary to pain HEAD: Normocephalic, atraumatic. EYES: PERRLA and EOMI. ENT: Nares clear, no rhinorrhea or epistaxis. Mucous membranes dry NECK: Supple. CHEST: Clear to auscultation. No respiratory distress. HEART: Regular rate and rhythm. ABDOMEN: Soft, tenderness periumbilical and right lower quadrant, no guarding or rebound EXTREMITIES: Normal range of motion. No edema. SKIN: Warm, dry, no rash. NEURO: No focal deficits. Alert and oriented x3. PSYCH: Normal mood and affect. Course Vital Signs Vital signs: Vital Signs Temperature 98.4 F 10/08/22 07:18 Pulse Rate 88 10/08/22 07:18 Respiratory Rate 16 10/08/22 07:18 Blood Pressure 194/103 H 10/08/22 07:18 Pulse Oximetry 100 10/08/22 07:18 Temperature 98.3 F 10/11/22 16:00 Pulse Rate 90 10/11/22 16:00 Respiratory Rate 15 10/11/22 16:00 Blood Pressure 146/88 H 10/11/22 16:00 Pulse Oximetry 98 10/11/22 16:00 Oxygen Delivery Room Air 10/11/22 12:00 Fraction of Inspired Oxygen 21 10/11/22 04:25 MDM - Abdominal Pain MDM Narrative Medical decision making narrative: Patient is a 52-year-old male presenting with 2 hours of severe abdominal pain that radiates into his back. Patient is hypertensive, his vitals are within normal limits. Exam is remarkable for the above. Blood work is concerning for a white count of 15.5, lipase of nearly 10,000. Patient is slightly hyperkalemic and he does appear to have an DARRYL. Fluids are ongoing. CT abdomen pelvis shows acute interstitial pancreat
[2022-10-08] MEDS: HYDROmorphone HCL INJ (*CRX) 1 MG/ML SYR IV PUSH ×6 (07:42→23:09)
[2022-10-08] MEDS: SODIUM CHLORIDE 0.9% IV 1,000 ML 999 ML IV CONT ×3 (07:42→08:50)
[2022-10-08 08:11] LABS: Alanine Aminotransferase 32 U/L (6-50); Albumin Level 4.4 g/dL (3.5-5.1); Alkaline Phosphatase 81 U/L (38-126); Anion Gap 14 mmol/L (8-16); Aspartate Amino Transferase 24 U/L (17-59); Bilirubin,Total 1.7 mg/dL (0.2-1.3); Blood Urea Nitrogen 21 mg/dL (9-20); Calcium 10.4 mg/dL (8.4-10.2); Carbon Dioxide 25 mmol/L (22-30); Chloride 92 mmol/L (98-107); Estimated CRCL calculation 53 ml/min; Estimated Glomerular Filt Rate 49; Glucose 218 mg/dL (65-110); Potassium 5.4 mmol/L (3.4-5.0); Sodium 131 mmol/L (137-145)
[2022-10-08] MEDS: KETOROLAC 15 MG/ML VIAL (*BKC) IV PUSH (08:52)
[2022-10-08 09:37] LABS: Lipase 9889 U/L (23-300)
[2022-10-08 10:22] LABS: Amorphous Sediment Urine Present; Appearance Urine Clear (Clear); Bacteria Urine None Seen /hpf; Bilirubin Urine Negative (Negative); Blood Urine Negative (Negative); Color Urine Yellow (Yellow); Glucose Urine UA 2+ mg/dL (Negative); Ketones Urine 2+ mg/dL (Negative); Leukocyte Esterase Ur Negative LEU/UL (Negative); Nitrate Urine Negative (Negative); Protein Urine Trace mg/dL (Negative); Squamous Epithelial Cell Urine None seen /hpf (Few); WBC Urine 0-5 /hpf; pH Urine 5.5 (5.0-9.0)
[2022-10-08 10:26] LABS: Add Urine Microscopic? YES
--- NOTE | 2022-10-08 11:16 | PC.NURSE ---
This patient, Bandar Messer, was admitted to 2 Medical Room 251-01. Patient/family oriented to hospital policies and general routines including ID bracelet, bed and alarms, visiting hours, pain management, procedures, bathroom and other care routines, personal items, smoking policy, room service/diet, and visiting hours. Information on how to activate the Rapid Response Team has been discussed. Patient/Family are encouraged to report perceived risks to care and to ask questions if they do not understand what they are told or what they should do.
--- NOTE | 2022-10-08 12:12 | PM.IMHP ---
H&P: HPI History of Present Illness Date/Time: 10/08/22 12:12 Chief Complaint: Abdominal pain Narrative: 52yo male with DM and HTN here for abdominal pain. Patient has been having a buring in his neck and chest described as 'fire' that occurs at different times and does wake him up at night. No hx of PUD. He tried his 's omeprazole without benefit. He saw his doctor who precribed a medication that was called (patient not aware of the name of the medication). He also has been taking NaBicarb at home. The symptoms have been 'lightening up' recently. He has DM for the past 3 years. He is only on metformin. He does not check his glucose values at home but last A1c 6.5. He also has HTN and intermittently checks his BP at home with BP occasionally as high as 220/110. He is compliant with his lisinopril. His physician is aware of the findings. He has been under a lot of stress with his mother in the hospital and not doing well. His last meal was yesterday noon yesterday. He denies any symptoms yesterday but this morning around 4am, awoke with epigastric abdominal pain that radiated to the back. Not had this before and is different then the symptoms he has been having for the past 2 weeks. EGD and colonoscopy in 2012 for blood in stool showing internal hemorrhoids. He still has his gallbladder. No hx of dyslipidemia. No alcohol use. No hx of drug use or IVDU. No nausea or vomiting. No fevers or chills. No diarrhea. No prior hx of pancreatitis. He presented to the ED for evaluation. In the ED, he was hypertensive but hemodynamically stable. WBC 15K, Na 131, potassium 5.4, BUN 21, Cr 1.5, Glucose 218, TB 1.[address] Abd/pelvis showing acute interstitial pancreatitis. GB appears normal. he was treated with IV fluids and narcotics. he was admitted for further care. No complaints of mouth pain, dysphagia or odynophagia. Review of Systems Review of Systems: All systems reviewed & are unremarkable except as noted in HPI and below PMFSH Past Medical History Medical History (Updated 10/08/22 @ 12:42 by Justice Baird MD) Diabetes Gout Hepatitis C treated HTN (hypertension) Surgical History Surgical History (Updated 10/08/22 @ 12:33 by Justice Baird MD) H/O shoulder surgery bilateral rotator cuff repairs H/O total hip arthroplasty right in July 2022 History of surgery on arm left bicep Family History Family History Mother Hypertension Diabetes mellitus Social History Social History (Updated 10/08/22 @ 12:35 by Justice Baird MD) Social History: Lifelong nonsmoker. No history of drug use. Denies alcohol use. Lives with his significant other. He is a full code. He nominates his significant other to be the individual to make medical decisions for him if he is unable. Smoking status: Never smoker Alcohol intake: never Substance use: never Substance use type: does not use Lack of Transportation: No Lack of Food: Never True Current Housing: I Have Housing Concerned About Future Housing: No Difficulty Paying Gas/Electric Bills: No Difficulty Paying for Meds: No Currently Unemployed: YES Education: High School Diploma/GED Difficulty w/ Childcare or Family Care: No Gender identity (if verbalized by the patient): Male Spiritual care concerns: No Meds Home Medications and Allergies Home Medications Medication Instructions Recorded Confirmed Type lisinopril 40 mg tablet 40 mg PO DAILY 08/29/19 10/08/22 History famotidine 20 mg tablet 20 mg PO BID 10/08/22 10/08/22 History metformin 500 mg tablet 500 mg PO BID 10/08/22 10/08/22 History Allergies Allergy/AdvReac Type Severity Reaction Status Date / Time hydrocodone [From Vicodin] Allergy Rash Verified 10/08/22 07:18 Vital Signs Vital Signs - 24 hr 10/08/22 07:18 10/08/22 07:20 10/08/22 07:31 Temperature 98.4 F Pulse Rate 88 Respiratory
--- NOTE | 2022-10-08 12:52 | ECG_ITS ---
Measurements Intervals [place] Rate: 90 P: 64 IA: 136 QRS: 9 QRSD: 86 T: 3 QT: 334 QTc: 410 Interpretive Statements SINUS RHYTHM BORDERLINE ST-T WAVE ABNORMALITY- INFERIOR LEADS BORDERLINE ECG COMPARED TO ECG 12/27/2021 11:53:32 NO SIGNIFICANT CHANGES Electronically Signed On 10-08-2022 18:46:41 CDT by Andreas Carrera D.O.
[2022-10-08 13:24] LABS: Anion Gap 2 mmol/L (8-16); Blood Urea Nitrogen 19 mg/dL (9-20); Calcium 8.4 mg/dL (8.4-10.2); Carbon Dioxide 28 mmol/L (22-30); Chloride 96 mmol/L (98-107); Cholesterol 207 mg/dL (0-200); Estimated CRCL calculation 65 ml/min; Estimated Glomerular Filt Rate > 60; Glucose 212 mg/dL (65-110); HDL Direct 14 mg/dL; Potassium 5.3 mmol/L (3.4-5.0); Sodium 126 mmol/L (137-145); Triglycerides 158 mg/dL (<150)
[2022-10-08 13:35] LABS: LDL Cholesterol Direct 163 mg/dL
[2022-10-08 13:41] LABS: Troponin I 0.376 ng/mL (0.000-0.034)
[2022-10-08] MEDS: SODIUM CHLORIDE 0.9% IV 1,000 ML 125 ML IV CONT (14:16)
[2022-10-08] MEDS: PANTOPRAZOLE SODIUM IV 40 MG VIAL IV PUSH ×2 (14:18→20:02)
[2022-10-08] MEDS: METOPROLOL TARTRATE 12.5 MG TABLET PO (15:10)
[2022-10-08] MEDS: ASPIRIN 81 MG CHEWABLE TABLET PO (15:10)
--- NOTE | 2022-10-08 15:14 | PC.NURSE ---
This patient, Bandar Messer, was transferred to [address] [place] [address] on 10/08/22 at 1514. Personal belongings sent with patient. Report given to [facility]. Appropriate documentation sent with patient.
--- NOTE | 2022-10-08 15:17 | PC.NURSE ---
Spoke to emergency contact Naima regarding transfer.
[2022-10-08] MEDS: hydrALAZINE HCL 20 MG/ML VIAL 10 MG IV PUSH ×2 (15:42→23:11)
--- NOTE | 2022-10-08 15:48 | PC.NURSE ---
Pt has 9/10 pain to abdomen and nausea. Notified Dr. Baird to update on pt's condition. Per MD, OK to change frequency of dilaudid 1mg IV to q3HRs PRN, and Zofran 4mg IV Q6HRs.
[2022-10-08] MEDS: ONDANSETRON INJ 4 MG/2 ML VIAL IV PUSH (16:09)
[2022-10-08 18:01] LABS: Glucose Point of Care 188 mg/dl (65-105)
[2022-10-08 18:59] LABS: Hemoglobin A1C 6.9 % (<5.7)
[2022-10-08] MEDS: METOPROLOL TARTRATE 25 MG TABLET PO (20:01)
[2022-10-08] MEDS: ASPIRIN 81 MG CHEWABLE TABLET 243 MG PO (20:27)
[2022-10-08 21:34] LABS: Anion Gap 2 mmol/L (8-16); Blood Urea Nitrogen 18 mg/dL (9-20); Calcium 8.5 mg/dL (8.4-10.2); Carbon Dioxide 29 mmol/L (22-30); Chloride 97 mmol/L (98-107); Estimated CRCL calculation 77 ml/min; Estimated Glomerular Filt Rate > 60; Glucose 177 mg/dL (65-110); Sodium 128 mmol/L (137-145)
[2022-10-08] MEDS: SODIUM CHLORIDE 0.9% IV 1,000 ML 150 ML IV CONT (21:36)
[2022-10-08] MEDS: WATER FOR IRRIGATION, STERILE 1,000 ML BOTTLE 1000 ML (21:41)
[2022-10-08 23:06] LABS: Basophils Percent Auto 0.1 % (0.2-1.2); Eosinophils Absolute Auto 0.1 K/mm3 (0-0.3); Eosinophils Percent Auto 0.4 % (0-4.4); Hematocrit 47.5 % (42.0-52.0); Hemoglobin 15.8 g/dL (14.0-18.0); Immature Granulocyte Absolute 0.07 K/mm3 (0.00-0.031); Immature Granulocyte Percent A 0.5 % (0-0.5); Lymphocytes Absolute Auto 1.68 K/mm3 (0.9-3.2); Lymphocytes Percent Auto 11.8 % (18.3-44.2); Mean Corpuscular HGB Conc 33.3 g/dl (32-36); Mean Corpuscular Hemoglobin 29.6 pg (26-34); Mean Corpuscular Volume 89.1 fl (80-100); Mean Platelet Volume 9.7 fl (7.4-10.4); Monocytes Absolute Auto 1.1 K/mm3 (0.1-0.6); Monocytes Percent Auto 7.5 % (2.6-8.5); Neutrophils Absolute Auto 11.3 K/mm3 (1.3-6.7); Neutrophils Percent Auto 79.7 % (45.5-73.1); Platelet Count Result 423 k/mm3 (150-375); Red Blood Count 5.33 M/mm3 (4.6-6.20); Red Cell Distribution Width 15.2 % (11.5-14.5); White Blood Count 14.2 K/mm3 (4.5-10.0)
[2022-10-08] MEDS: HEPARIN SODIUM 5,000 UNITS/ML VIAL 4000 UNITS IV PUSH (23:07)
[2022-10-08] MEDS: HEPARIN SOD/D5W 100 UNITS/ML 25,000 UNITS/250 ML BAG 9 UNITS IV CONT (23:08)
[2022-10-08 23:17] LABS: INR 1.1; Prothrombin Time 14.3 Seconds (11.1-14.7)
[2022-10-08 23:18] LABS: Partial Thromboplastin Time 25.5 SECONDS (22.3-36.8)
[2022-10-08 23:44] LABS: Glucose Point of Care 149 mg/dl (65-105)
[2022-10-09] VITALS (20 sets, daily range): BP systolic 145–181; BP diastolic 56–94; PULSE 81–106; RESP 14–22; TEMP 36.4–38.2; O2SAT 95–98
--- NOTE | 2022-10-09 | ECHO_ITS ---
Patient Info Name: Bandar Messer Age: 52 years : 1970 Gender: Male Ht: 69 in Wt: 200 lbs BSA: 2.12 m2 HR: 98 bpm BP: 145 / 82 mmHg Heart Rhythm: Sinus Rhythm Technical Quality: Fair Exam Date: 10/09/2022 8:09 AM Exam Location: [facility] Patient Status: Inpatient Admit Date: 10/08/2022 Staff Ordering Physician: Justice Baird MD Suspect Artist: Tali Flores RDCS Attending Provider: Justice Baird MD Exam Type: CA echo dop color flow w con Study Info Indications - CHEST BURNING Complete two-dimensional, color flow and Doppler transthoracic echocardiogram is performed with contrast to opacify the left ventricle and to improve the deliniation of the left ventricle endocardial borders. Contrast/Agitated Saline Contrast/Ag. Saline: Definity Amount: 3.00 ml Administered By: Tali Flores RDCS Existing IV Access: Yes IV Access Condition: patent with no signs of infiltration Summary 1. Left ventricular hypertrophy with vigorous systolic function and grade 1 diastolic noncompliance. 2. Trivial amounts of mitral and pulmonic valve insufficiency. 3. Small to trivial posterior pericardial effusion. Left Ventricle Left ventricular chamber dimension is normal. Left ventricular systolic function is normal, estimated at 60-65%. There is moderate concentric increased left ventricular wall thickness. The left ventricular diastolic function is grade I diastolic dysfunction. Right Ventricle Right ventricular chamber dimension is normal. Left Atria Left atrial chamber dimension is normal. Right Atria Right atrial chamber dimension is normal. Aortic Valve The aortic valve is normal. Pulmonic Valve The pulmonic valve is normal. There is trace pulmonic regurgitation. Mitral Valve The mitral valve has normal leaflets. There is trace mitral valve regurgitation. Tricuspid Valve The tricuspid valve leaflets are normal. Pericardium/Pleural There is trivial pericardial effusion. Aorta The aortic root size at the sinus of Valsalva is normal. Left Ventricular Outflow Tract Name Value Normal LVOT 2D LVOT Diameter 2.08 cm LVOT Doppler LVOT Peak Gradient 3 mmHg LVOT Mean Gradient 2 mmHg LVOT VTI 17.55 cm LVOT VTI/AV VTI Ratio 0.63 LVOT Stroke Volume 59.49 ml LVOT CO 5.15 l/min LVOT CI 2.42 L/min/m2 Pulmonic Valve Name Value Normal RVOT Doppler RVOT Peak Gradient 2 mmHg PV Doppler PV Peak Gradient 5 mmHg Mitral Valve Name Value Normal
[2022-10-09] MEDS: HYDROmorphone HCL INJ (*CRX) 1 MG/ML SYR IV PUSH ×6 (02:11→21:08)
[2022-10-09] MEDS: SODIUM CHLORIDE 0.9% IV 1,000 ML 150 ML IV CONT ×3 (04:06→18:42)
[2022-10-09 05:21] LABS: Basophils Percent Auto 0.2 % (0.2-1.2); Eosinophils Absolute Auto 0.1 K/mm3 (0-0.3); Eosinophils Percent Auto 0.7 % (0-4.4); Hematocrit 46.5 % (42.0-52.0); Hemoglobin 15.2 g/dL (14.0-18.0); Immature Granulocyte Absolute 0.06 K/mm3 (0.00-0.031); Immature Granulocyte Percent A 0.5 % (0-0.5); Lymphocytes Absolute Auto 1.74 K/mm3 (0.9-3.2); Lymphocytes Percent Auto 13.9 % (18.3-44.2); Mean Corpuscular HGB Conc 32.7 g/dl (32-36); Mean Corpuscular Hemoglobin 29.4 pg (26-34); Mean Corpuscular Volume 89.9 fl (80-100); Mean Platelet Volume 9.8 fl (7.4-10.4); Monocytes Absolute Auto 0.9 K/mm3 (0.1-0.6); Monocytes Percent Auto 7.2 % (2.6-8.5); Neutrophils Absolute Auto 9.7 K/mm3 (1.3-6.7); Neutrophils Percent Auto 77.5 % (45.5-73.1); Platelet Count Result 394 k/mm3 (150-375); Red Blood Count 5.17 M/mm3 (4.6-6.20); Red Cell Distribution Width 15.4 % (11.5-14.5); White Blood Count 12.5 K/mm3 (4.5-10.0)
[2022-10-09 05:32] LABS: Partial Thromboplastin Time 30.2 SECONDS (22.3-36.8)
[2022-10-09] MEDS: HEPARIN SODIUM 5,000 UNITS/ML VIAL 4000 UNITS IV PUSH ×3 (05:38→18:50)
[2022-10-09 05:54] LABS: Alanine Aminotransferase 23 U/L (6-50); Albumin Level 3.3 g/dL (3.5-5.1); Alkaline Phosphatase 57 U/L (38-126); Anion Gap 3 mmol/L (8-16); Aspartate Amino Transferase 47 U/L (17-59); Bilirubin,Total 1.4 mg/dL (0.2-1.3); Blood Urea Nitrogen 14 mg/dL (9-20); Calcium 8.1 mg/dL (8.4-10.2); Carbon Dioxide 26 mmol/L (22-30); Chloride 100 mmol/L (98-107); Estimated CRCL calculation 85 ml/min; Estimated Glomerular Filt Rate > 60; Glucose 146 mg/dL (65-110); Sodium 129 mmol/L (137-145)
[2022-10-09 06:24] LABS: Lipase 6286 U/L (23-300)
--- NOTE | 2022-10-09 07:00 | ECG_ITS ---
Measurements Intervals [place] Rate: 77 P: 62 CT: 136 QRS: 11 QRSD: 89 T: -14 QT: 358 QTc: 407 Interpretive Statements SINUS RHYTHM BORDERLINE ST-T WAVE ABNORMALITY- INFERIOR LEADS BORDERLINE ECG COMPARED TO ECG 10/08/2022 14:06:06 NO SIGNIFICANT CHANGES Electronically Signed On 10-09-2022 13:54:39 CDT by Andreas Carrera D.O.
[2022-10-09] MEDS: PERFLUTREN LIPID MICROSPHERES 1.5 ML VIAL DILUTED TO 10 ML TOTAL VOLUME IV PUSH (09:01)
--- NOTE | 2022-10-09 09:16 | PM.IMPN ---
Progress Note: A&P Assessment and Plan (1) Non-ST elevation [place] (NSTEMI): Code(s): I21.4 - Non-ST elevation (NSTEMI) myocardial infarction Status: Acute Assessment and Plan: Patient over the past 2 weeks has been having burning chest pain. patient states his primary care doctor felt this was acid reflux despite not improving with omeprazole. Given his risk factors, cardiac etiology was suspected. EKG on admission shows normal sinus rhythm with borderline ST-T wave changes in inferior leads but these appear to be chronic when compared to an old EKG. His 1st troponin was elevated. He was moved to the IMU. He was started on a baby aspirin and metoprolol. His subsequent troponins were higher. He was given 3 more baby aspirin. Cardiology was consulted. Heparin drip was started. Echocardiogram is ongoing will follow-up on this result. Trop trending down now. Consider takotsubo cardiomyopathy given the recent loss of his mother And the fact he has pancreatitis. Repeat EKG this morning. (2) Pancreatitis: Code(s): K85.90 - Acute pancreatitis without necrosis or infection, unspecified Status: Acute Assessment and Plan: Patient presents with abdominal pain found to elevated lipase and CT scan consistent with acute interstitial pancreatitis. Lipases 9889. Patient denies alcohol use. No concerning findings by the CT scan for gallstones or acute cholecystitis. TG level 158. RUQ US showing normal liver and GB. No gallstones. Etiology of the pancreatitis is unclear. Viral? Consider also a penetrating peptic ulcer that may explain the burning sensation in his neck and chest. Lipases better at 6286. GI consult for possible EGD. Continue Dilaudid p.r.n. for pain control. Continue IV fluids. Continue Protonix. Keep NPO for now. (3) Hyperkalemia: Code(s): E87.5 - Hyperkalemia Status: Acute Assessment and Plan: Patient with hyperkalemia on admission. Related to lisinopril with associated renal insufficiency. Repeat potassium levels have trended down. TSH and Cortisol normal. Continue to follow. (4) Burning chest pain: Code(s): R07.89 - Other chest pain Status: Acute Assessment and Plan: As above. Either atypical cardiac ischemia or related to GERD/PUD. As above (5) HTN (hypertension): Code(s): I10 - Essential (primary) hypertension Status: Acute Assessment and Plan: Blood pressure was markedly elevated on admission related to pain. He may have uncontrolled hypertension as well. Lisinopril was held given the hyperkalemia. Although rare, lisinopril has been known to cause pancreatitis. Metoprolol added due to the elevated Troponins. BP better overnight but higher this morning. Hydralazine will be available as needed for severe hypertension. Advance metoprolol if still poorly controlled. 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 The patient's blood glucose was reviewed on 10/09 Glucose remains reasonably well controlled. Continue AccuCheks covering with sliding scale. Hypoglycemia protocol available as needed. Continue to monitor. Continue to hold metformin. (7) Renal insufficiency: Code(s): N28.9 - Disorder of kidney and ureter, unspecified Status: Acute Assessment and Plan: Baseline creatinine runs 1.1-1.4. Creatinine was 1.5 on admission and felt to have DARRYL. He was started on IV fluids. Cr has trended down to normal. Continue to follow. (8) Hyponatremia: Code(s): E87.1 - Hypo-osmolality and hyponatremia Status: Acute Assessment and Plan: So
[2022-10-09] MEDS: METOPROLOL TARTRATE 25 MG TABLET PO ×2 (09:32→21:08)
[2022-10-09] MEDS: ONDANSETRON INJ 4 MG/2 ML VIAL IV PUSH ×3 (09:32→22:30)
[2022-10-09] MEDS: ASPIRIN 81 MG CHEWABLE TABLET PO (09:33)
--- NOTE | 2022-10-09 11:00 | PM.CNCAR ---
Assessment and Plan Assessment and plan (1) Non-ST elevation CA (NSTEMI): Code(s): I21.4 - Non-ST elevation (NSTEMI) myocardial infarction Status: Acute Assessment and Plan: His troponin is elevated at 0.376, 3.5, 5.36. Trended down today to 4.920. EKG did not show any acute STTW changes. He has atypical, burning chest pain that is probably related to GERD. However, given troponin spill could also be an anginal equivalent. I am most suspicious that he may have a Takotsubo cardiomyopathy as his mother unexpectedly yesterday and he is experiencing physiologic stress from acute pancreatitis. He is chest pain free currently. Continue heparin gtt Will plan for coronary angiogram tomorrow Keep NPO Continue metoprolol 25mg p.o. q12h Echo is pending (2) Burning chest pain: Code(s): R07.89 - Other chest pain Status: Acute Assessment and Plan: As above, probably related to acid reflux, but may be anginal equivalent. (3) Pancreatitis: Code(s): K85.90 - Acute pancreatitis without necrosis or infection, unspecified Status: Acute Assessment and Plan: GI following, appreciate recs. (4) HTN (hypertension): Code(s): I10 - Essential (primary) hypertension Status: Acute Assessment and Plan: Improved since admission but remains elevated. Home lisinopril has been discontinued because it can rarely cause pancreatitis. Add amlodipine 5mg daily Continue metoprolol 25mg b.i.d. If he does have Takotsubo CMY, will add ARB as well. History of Present Illness History of Present Illness Consult date/time: 10/09/22 11:00 Requesting physician: Justice Baird MD Consult reason: Other (elevated troponin) Reason For Visit: acute pancreatitis Narrative: Mr. Messer Is a 52-year-old male with a medical history of hypertension, type 2 diabetes mellitus, and GERD. He comes to the hospital now with a chief complaint of a burning sensation that starts in his neck and travels down his esophagus. He has also been experiencing some right upper quadrant abdominal pain and mid back pain. His symptoms started yesterday. He denies any cardiac history but he did undergo a stress test about year ago which according to the patient was negative. Around that time, was also having some chest discomfort that was thought to be associated with frequent PVCs because of hyperkalemia. He initially was found to have a mildly elevated troponin of .376 and a troponin peak of 5.36. We are being asked to see him because of elevated troponin levels. At the time of my visit with him he is lying comfortably in bed sleeping but awakens to my voice. He currently denies any chest pain, shortness of breath, palpitations. Review of Systems Review of Systems: All systems reviewed & are unremarkable except as noted in HPI and below PMFSH Past Medical History Medical History (Updated 10/09/22 @ 09:23 by Justice Baird MD) Diabetes Gout Hepatitis C treated HTN (hypertension) Surgical History Surgical History (Updated 10/08/22 @ 12:33 by Justice Baird MD) H/O shoulder surgery bilateral rotator cuff repairs H/O total hip arthroplasty right in July 2022 History of surgery on arm left bicep Family History Family History Mother Hypertension Diabetes mellitus Social History Social History Social History: Lifelong nonsmoker. No history of drug use. Denies alcohol use. Lives with his significant other. He is a full code. He nominates his significant other to be the individual to make medical decisions for him if he is unable. Smoking status: Never smoker Alcohol intake: never Substance use: never Substance use type: does not use Lack of Transportation: No Lack of Food: Never True Current Housing: I Have Housing Concerned About Future H
[2022-10-09] MEDS: METOPROLOL TARTRATE INJ 5 MG/5 ML VIAL IV PUSH (11:59)
[2022-10-09] MEDS: PANTOPRAZOLE SODIUM IV 40 MG VIAL IV PUSH ×2 (11:59→21:08)
--- NOTE | 2022-10-09 12:05 | WPDGICN ---
Assessment and Plan Assessment and plan (1) Pancreatitis: Code(s): K85.90 - Acute pancreatitis without necrosis or infection, unspecified Status: Acute Assessment and Plan: Patient with acute interstitial pancreatitis identified by imaging correlates with elevated lipase. May be idiopathic given his associated heart disease plan to check lipid levels. plan for supportive care with IV rehydration at present monitor labs. We will keep him NPO for now. (2) Burning chest pain: Code(s): R07.89 - Other chest pain Status: Acute Assessment and Plan: Patient with burning chest pain presumably from acid reflux. Given his elevated troponins could this be a cardiac anginal equivalent cardiology is seeing the patient at present. Plan for the when his pancreatitis resolved. Patient currently appears to have an ileus which may limit endoscopy at present. Supportive care for now will keep him on IV proton pump inhibitors. (3) Non-ST elevation [place] (NSTEMI): Code(s): I21.4 - Non-ST elevation (NSTEMI) myocardial infarction Status: Acute Assessment and Plan: Cardiology following for elevated troponin level and possible TX (4) HTN (hypertension): Code(s): I10 - Essential (primary) hypertension Status: Acute Assessment and Plan: Extremely high blood pressure now somewhat better controlled today. GI Consult Note Consult date/time: 10/09/22 12:05 Reason for consult: Pancreatitis and heartburn HPI: Bandar Messer is a 52 year old male I am asked to see at the request of the hospitalist service. Patient has a history of substernal burning has been present for some time. This is worse after eating. He has been on proton pump inhibitors with no change in symptoms. Patient's mother has been ill and in fact yesterday. Patient developed rather severe epigastric pain and for this reason went to the emergency room where he CT scan suggested pancreatitis. Lipase is quite elevated. For this reason admitted the hospital. After admission the hospital cardiac enzymes were noted to be markedly elevated as well. Patient currently in the hospital his blood pressure has been quite high but controlled on medications over the evening. Patient continues to complain of burning substernal discomfort. Patient has never before felt to have pancreatitis. He reports that he does not drink significantly. Not known to previously have elevated cholesterol. Review of Systems Review of Systems: Review of systems noncontributory. [facility] Past Medical History Medical History (Updated 10/09/22 @ 09:23 by Justice Baird MD) Diabetes Gout Hepatitis C treated HTN (hypertension) Surgical History Surgical History (Updated 10/08/22 @ 12:33 by Justice Baird MD) H/O shoulder surgery bilateral rotator cuff repairs H/O total hip arthroplasty right in July 2022 History of surgery on arm left bicep Family History Family History Mother Hypertension Diabetes mellitus Social History Social History (Updated 10/08/22 @ 12:35 by Justice Baird MD) Social History: Lifelong nonsmoker. No history of drug use. Denies alcohol use. Lives with his significant other. He is a full code. He nominates his significant other to be the individual to make medical decisions for him if he is unable. Smoking status: Never smoker Alcohol intake: never Substance use: never Substance use type: does not use Lack of Transportation: No Lack of Food: Never True Current Housing: I Have Housing Concerned About Future Housing: No Difficulty Paying Gas/Electric Bills: No Difficulty Paying for Meds: No Currently Unemployed: YES Education: High School Diploma/GED Difficulty w/ Childcare or Family Care: No Gender identity (if verbalized by the patient): Male Spiritual care concerns:
[2022-10-09 12:08] LABS: Partial Thromboplastin Time 38.5 SECONDS (22.3-36.8)
[2022-10-09 12:52] LABS: Glucose Point of Care 131 mg/dl (65-105)
--- NOTE | 2022-10-09 13:07 | IVDEFINITY ---
Prior to administration of IV Definity the patient was educated on the risks and benefits of the imaging enhancing agent including potential adverse side effects. The patient verbalized understanding. Allergies were verified. No exclusion criteria were identified and at least one of the following inclusion criteria were met: 1) physician request, 2) patient technically difficult to image (per the [place] [employer] guidelines of two or more segments not discernable within the apical view), or 3) questionable left ventricular function. ?
--- NOTE | 2022-10-09 14:34 | PCCCNOTE ---
On 10/09/22, the student, [Kaykay Whitehead], provided care and completed [facility] documentation on this patient. I have reviewed the student's documentation and agree with the findings.
[2022-10-09] MEDS: amLODIPine BESYLATE 5 MG TABLET PO (14:54)
[2022-10-09 17:11] LABS: Glucose Point of Care 118 mg/dl (65-105)
[2022-10-09] MEDS: HEPARIN SOD/D5W 100 UNITS/ML 25,000 UNITS/250 ML BAG 15 UNITS IV CONT (17:39)
[2022-10-09 18:37] LABS: Partial Thromboplastin Time 44.4 SECONDS (22.3-36.8)
[2022-10-09 23:28] LABS: Glucose Point of Care 103 mg/dl (65-105)
[2022-10-10] VITALS (29 sets, daily range): BP systolic 124–186; BP diastolic 75–96; PULSE 82–105; RESP 16–20; TEMP 36.4–37.4; O2SAT 95–99
[2022-10-10] MEDS: HYDROmorphone HCL INJ (*CRX) 1 MG/ML SYR IV PUSH ×7 (00:26→23:56)
[2022-10-10 01:38] LABS: Partial Thromboplastin Time 84.5 SECONDS (22.3-36.8)
[2022-10-10] MEDS: SODIUM CHLORIDE 0.9% IV 1,000 ML 150 ML IV CONT ×3 (02:05→23:58)
--- NOTE | 2022-10-10 07:30 | WPDGIPROGNO ---
Progress Note: A&P Assessment and Plan (1) Pancreatitis: Code(s): K85.90 - Acute pancreatitis without necrosis or infection, unspecified Status: Acute Assessment and Plan: Patient with acute interstitial pancreatitis. Appears to be idiopathic. Continue supportive care with IV fluid rehydration pain control. Lipase is improving will continue to monitor conservatively at this point. (2) Non-ST elevation AR (NSTEMI): Code(s): I21.4 - Non-ST elevation (NSTEMI) myocardial infarction Status: Acute Assessment and Plan: Patient appears to have cardiomyopathy and acute myocardial infarction. Could this be broken heart syndrome . Given the recent of his mother. Cardiology following. Heart cath to be pursued performed today. (3) Burning chest pain: Code(s): R07.89 - Other chest pain Status: Acute Assessment and Plan: Patient with ongoing substernal chest pain. Currently this is controlled today. Initial cardiac workup pending. EGD at some later date is advised. Continue pantoprazole in the interim. Subjective Date/time seen: 10/10/22 07:30 Interval history: Patient alert this morning. States abdominal pain persists. He reports diffuse tenderness. Activity seems to intensify the pain. Review of Systems Review of Systems: Review of systems noncontributory. Exam Narrative: Physical exam reveals patient be alert. Vital signs are stable. he is anicteric. Blood pressure more controlled this morning. Lungs are clear to auscultation and percussion. Heart is without murmur. Abdomen bowel sounds are quiet. Abdomen is soft. Diffuse tenderness appreciated. No obvious organomegaly. No masses appreciated. Objective Data Vital Signs Vital Signs: Vital Signs - 24 hr 10/09/22 08:00 10/09/22 09:32 10/09/22 08:00 Temperature 98 F Pulse Rate 98 90 Respiratory Rate 16 Blood Pressure 181/86 H 151/56 H Pulse Oximetry 95 Oxygen Delivery 10/09/22 11:59 10/09/22 12:00 10/09/22 08:00 Temperature 97.5 F L Pulse Rate 88 86 93 Respiratory Rate 16 Blood Pressure 168/94 H Pulse Oximetry 97 Oxygen Delivery 10/09/22 10:00 10/09/22 12:00 10/09/22 14:00 Temperature Pulse Rate 95 98 86 Respiratory Rate Blood Pressure Pulse Oximetry Oxygen Delivery 10/09/22 16:00 10/09/22 16:00 10/09/22 16:10 Temperature 100.7 F H 98.7 F Pulse Rate 89 88 Respiratory Rate 18 Blood Pressure 150/85 H Pulse Oximetry 95 Oxygen Delivery 10/09/22 16:15 10/09/22 18:00 10/09/22 20:00 Temperature 98.7 F 98.0 F Pulse Rate 94 94 Respiratory Rate 18 Blood Pressure 151/83 H Pulse Oximetry 98 Oxygen Delivery 10/09/22 20:00 10/09/22 21:08 10/09/22 20:00 Temperature Pulse Rate 94 96 94 Respiratory Rate 18 Blood Pressure Pulse Oximetry 98 Oxygen Delivery Room Air 10/09/22 23:32 10/09/22 22:00 10/10/22 00:00 Temperature 97.6 F Pulse Rate 85 81 85 Respiratory Rate 20 20 Blood Pressure 145/94 H Pulse Oximetry 95 95 Oxygen Delivery Room Air 10/10/22 00:00 10/10/22 02:00 10/10/22 04:00 Temperature Pulse Rate 94 88 87 Respiratory Rate 20 Blood Pressure Pulse Oximetry 96 Oxygen Delivery Room Air 10/10/22 04:06 10/10/22 04:00 10/10/22 06:00 Temperature 97.6 F Pulse Rate 87 87 82 Respiratory Rate 20 Blood Pressure 133/86 Pulse Oximetry 96 Oxygen Delivery Intake/Output Intake/Output: Intake & Output 10/07/22 10/08/22 10/09/22 10/10/22 23:59 23:59 23:59 23:59 Intake Total 4000 3166 1500 Output Total 964 9185 6331 Balance 1934 -782 -600 Meds/Results Medications: Active Medications Generic Name Dose Route Start Last Admin Trade Name Freq PRN Reason Stop Dose Admin Amlodipine Besylate 5 mg 10/09/22 14:10 10/09/22 14:54 Amlodipine Besylate 5 Mg Tablet PO 5 mg QAM ALISTAIR Administration Aspirin 81 mg
[2022-10-10 07:56] LABS: Basophils Absolute Auto 0.1 K/mm3 (0.0-0.1); Basophils Percent Auto 0.4 % (0.2-1.2); Eosinophils Absolute Auto 0.3 K/mm3 (0-0.3); Eosinophils Percent Auto 2.7 % (0-4.4); Hematocrit 42.6 % (42.0-52.0); Hemoglobin 13.8 g/dL (14.0-18.0); Immature Granulocyte Absolute 0.05 K/mm3 (0.00-0.031); Immature Granulocyte Percent A 0.4 % (0-0.5); Lymphocytes Absolute Auto 1.83 K/mm3 (0.9-3.2); Lymphocytes Percent Auto 16.2 % (18.3-44.2); Mean Corpuscular HGB Conc 32.4 g/dl (32-36); Mean Corpuscular Hemoglobin 29.2 pg (26-34); Mean Corpuscular Volume 90.1 fl (80-100); Mean Platelet Volume 9.8 fl (7.4-10.4); Monocytes Percent Auto 9.2 % (2.6-8.5); Neutrophils Percent Auto 71.1 % (45.5-73.1); Platelet Count Result 330 k/mm3 (150-375); Red Blood Count 4.73 M/mm3 (4.6-6.20); Red Cell Distribution Width 15.3 % (11.5-14.5); White Blood Count 11.3 K/mm3 (4.5-10.0)
[2022-10-10] MEDS: METOPROLOL TARTRATE 25 MG TABLET PO ×2 (08:04→20:32)
[2022-10-10] MEDS: amLODIPine BESYLATE 5 MG TABLET PO (08:04)
[2022-10-10] MEDS: ASPIRIN 81 MG CHEWABLE TABLET PO (08:04)
[2022-10-10] MEDS: HEPARIN SOD/D5W 100 UNITS/ML 25,000 UNITS/250 ML BAG 18 UNITS IV CONT (08:05)
[2022-10-10] MEDS: PANTOPRAZOLE SODIUM IV 40 MG VIAL IV PUSH ×2 (08:05→20:32)
[2022-10-10 08:09] LABS: Partial Thromboplastin Time 69.8 SECONDS (22.3-36.8)
[2022-10-10 08:12] LABS: Alanine Aminotransferase 20 U/L (6-50); Albumin Level 3.1 g/dL (3.5-5.1); Alkaline Phosphatase 46 U/L (38-126); Anion Gap -1 mmol/L (8-16); Aspartate Amino Transferase 27 U/L (17-59); Bilirubin,Total 1.2 mg/dL (0.2-1.3); Blood Urea Nitrogen 8 mg/dL (9-20); Calcium 8.2 mg/dL (8.4-10.2); Carbon Dioxide 32 mmol/L (22-30); Chloride 97 mmol/L (98-107); Estimated CRCL calculation 77 ml/min; Estimated Glomerular Filt Rate > 60; Glucose 107 mg/dL (65-110); Lipase 1980 U/L (23-300); Potassium 4.4 mmol/L (3.4-5.0); Sodium 128 mmol/L (137-145)
--- NOTE | 2022-10-10 09:01 | PM.IMPN ---
Progress Note: A&P Assessment and Plan (1) Non-ST elevation [place] (NSTEMI): Code(s): I21.4 - Non-ST elevation (NSTEMI) myocardial infarction Status: Acute Assessment and Plan: Patient over the past 2 weeks has been having burning chest pain. Patient states his primary care doctor felt this was acid reflux but symptoms not improving with omeprazole. Given his risk factors, cardiac etiology was suspected. EKG on admission shows normal sinus rhythm with borderline ST-T wave changes in inferior leads but these appear to be chronic when compared to an old EKG. His 1st troponin was elevated and he was moved to the IMU. He was given aspirin and metoprolol. His subsequent troponins peaked at 5.4. Cardiology was consulted. Heparin drip was started. Echo showing EF 60-65% with moderate concentric LVH and Grade I diastolic dysfunction. Trop trending down. Plan for [facility] today. (2) Pancreatitis: Code(s): K85.90 - Acute pancreatitis without necrosis or infection, unspecified Status: Acute Assessment and Plan: Patient presents with abdominal pain found to elevated lipase and CT scan consistent with acute interstitial pancreatitis. Lipase was 9889. Patient denies alcohol use. No concerning findings by the CT scan for gallstones or acute cholecystitis. TG level 158. RUQ US showing normal liver and GB. No gallstones. Etiology of the pancreatitis is unclear. Viral? Consider also a penetrating peptic ulcer that may explain the burning sensation in his neck and chest. Lipases better at 1980. GI consulted for possible EGD. Continue Dilaudid p.r.n. for pain control. Continue IV fluids. Continue Protonix. Start diet when okay with others (3) Hyperkalemia: Code(s): E87.5 - Hyperkalemia Status: Acute Assessment and Plan: Patient with hyperkalemia on admission. Related to lisinopril with associated renal insufficiency. Repeat potassium levels have been normal. TSH and Cortisol normal. Continue to follow. (4) Burning chest pain: Code(s): R07.89 - Other chest pain Status: Acute Assessment and Plan: Either atypical cardiac ischemia or related to GERD/PUD. As above (5) HTN (hypertension): Code(s): I10 - Essential (primary) hypertension Status: Acute Assessment and Plan: Blood pressure was markedly elevated on admission related to pain. He may have uncontrolled hypertension as well as noted by his Echo. Lisinopril was held given the hyperkalemia. Although rare, lisinopril has been known to cause pancreatitis. Metoprolol added due to the elevated Troponins. Norvasc added as well. BP better controlled overall. Hydralazine will be available as needed for severe hypertension. Follow (6) Diabetes: Qualifiers: Diabetes mellitus complication status: with hyperglycemia Diabetes mellitus internal security manager insulin use: without half-way use Diabetes mellitus type: type 2 Qualified Code(s): E11.65 - Type 2 diabetes mellitus with hyperglycemia Code(s): E11.9 - Type 2 diabetes mellitus without complications Status: Acute Assessment and Plan: A1c 6.9. The patient's blood glucose was reviewed on 10/10 Glucose remains reasonably well controlled. Continue AccuCheks covering with sliding scale. Hypoglycemia protocol available as needed. Continue to monitor. Continue to hold metformin. (7) Renal insufficiency: Code(s): N28.9 - Disorder of kidney and ureter, unspecified Status: Acute Assessment and Plan: Baseline creatinine runs 1.1-1.4. Creatinine was 1.5 on admission and felt to have DARRYL. He was started on IV fluids. Cr has trended down to normal. Continue to follow. (8) Hyponatremia: Code(s): E87.1 - Hypo-osmolality and hyponatremia Status: Acute Assessment and Plan: Sodium low at 131 and dropped to 126. Na about the same at 128. Probably related to dehydration from 3rd spacing of fluids. Con
[2022-10-10] MEDS: HEPARIN SODIUM 5,000 UNITS/ML VIAL 3000 UNITS IV PUSH (10:13)
--- NOTE | 2022-10-10 12:45 | WPDMODSED ---
Moderate Sedation Note-Pt Data Patient Data Diagnosis: NSTEMI Present Complaint: NSTEMI Procedure to be performed/Plan: Coronary angiography, left heart cath, +/- PCI Allergies Allergy/AdvReac Type Severity Reaction Status Date / Time hydrocodone [From Vicodin] Allergy Rash Verified 10/08/22 07:18 Home Medications Medication Instructions Recorded Confirmed Type lisinopril 40 mg tablet 40 mg PO DAILY 08/29/19 10/08/22 History famotidine 20 mg tablet 20 mg PO BID 10/08/22 10/08/22 History metformin 500 mg tablet 500 mg PO BID 10/08/22 10/08/22 History Current Medications: Active Medications Amlodipine Besylate (Amlodipine Besylate 5 Mg Tablet) 5 mg PO QAM COUNTS INCLUDE 234 BEDS AT THE [facility] Last Admin: 10/10/22 08:04 Dose: 5 mg Aspirin (Aspirin 81 Mg Chewable Tablet) 81 mg PO DAILY@0800 COUNTS INCLUDE 234 BEDS AT THE [facility] Last Admin: 10/10/22 08:04 Dose: 81 mg Atorvastatin Calcium (Atorvastatin 40 Mg Tablet) 80 mg PO DAILY COUNTS INCLUDE 234 BEDS AT THE [facility] Clopidogrel Bisulfate (Clopidogrel Bisulfate 75 Mg Tablet) 75 mg PO QAM COUNTS INCLUDE 234 BEDS AT THE [facility] Dextrose (Dextrose 50% 25 Gm/50 Ml Syringe) 12.5 gm IV PUSH PRN PRN; Protocol PRN Reason: Hypoglycemia Glucagon (Glucagon For Inj 1 Mg Vial) 1 mg IM PRN PRN; Protocol PRN Reason: Hypoglycemia Glucose (Glucose Oral Gel 15 Gm Of Glucse In 37.5 Gm Tube) 15 gm PO PRN PRN; Protocol PRN Reason: Hypoglycemia Hydralazine HCl (Hydralazine Hcl 20 Mg/Ml Vial) 10 mg IV PUSH Q4H PRN PRN Reason: Blood Pressure - High Last Admin: 10/08/22 23:11 Dose: 10 mg Hydromorphone HCl (Hydromorphone Hcl Inj (*Crx) 1 Mg/Ml Syr) 1 mg IV PUSH Q3H PRN PRN Reason: Pain Rated 7-10 Last Admin: 10/10/22 10:07 Dose: 1 mg Sodium Chloride (Normal Saline Iv) 1,000 mls @ 150 mls/hr IV CONT .Q6H40M ALISTAIR Last Admin: 10/10/22 10:10 Dose: 150 mls/hr Dextrose (Dextrose 5% 1,000 Ml) 1,000 mls @ 100 mls/hr IVPB PRN PRN; Protocol PRN Reason: Hypoglycemia Sodium Chloride (Normal Saline Iv) 1,000 mls @ 125 mls/hr IV CONT .Q8H ONE Stop: 10/10/22 20:42 Insulin Aspart (Insulin Aspart (*Bkc) 100 Units/Ml) 3 - 6 units SUB-Q Q6HR ALISTAIR; Protocol Last Admin: 10/10/22 06:34 Dose: Not Given Metoprolol Tartrate (Metoprolol Tartrate 25 Mg Tablet) 25 mg PO Q12HR ALISTAIR Last Admin: 10/10/22 08:04 Dose: 25 mg Metoprolol Tartrate (Metoprolol Tartrate Inj 5 Mg/5 Ml Vial) 5 mg IV PUSH Q6H PRN PRN Reason: tachycardia or HTN Last Admin: 10/09/22 11:59 Dose: 5 mg Ondansetron HCl (Ondansetron Inj 4 Mg/2 Ml Vial) 4 mg IV PUSH Q6H PRN PRN Reason: Nausea And Vomiting Last Admin: 10/09/22 22:30 Dose: 4 mg Pantoprazole Sodium (Pantoprazole Sodium Iv 40 Mg Vial) 40 mg IV PUSH Q12HR ALISTAIR Last Admin: 10/10/22 08:05 Dose: 40 mg Sedation/Anesthesia: No previous sedation/anesthesia problems (including family history). [facility] Past Medical History Medical History Diabetes Gout Hepatitis C treated HTN (hypertension) Surgical History Surgical History H/O shoulder surgery bilateral rotator cuff repairs H/O total hip arthroplasty right in July 2022 History of surgery on arm left bicep Family History Family History Mother Hypertension Diabetes mellitus Social History Social History Social History: Lifelong nonsmoker. No history of drug use. Denies alcohol use. Lives with his significant other. He is a full code. He nominates his significant other to be the individual to make medical decisions for him if he is unable. Smoking status: Never smoker Alcohol intake: never Substance use: never Substance use type: does not use Lack of Transportation: No Lack of Food: Never True Current Housing: I Have Housing Concerned About Future Housing: No Difficulty Paying Gas/Electric Bills: No Difficulty Paying for Meds: No Currently Unemployed: YES Education: High
--- NOTE | 2022-10-10 12:46 | WPDCARDPROC ---
Cardiac Cath Procedure Note Date of procedure:: 10/10/22 Performing physician:: CATHETERIZATION LABORATORY REPORT Procedure Date: 10/10/2022 Chemical Processor: Darshan Lentz M.D., [facility]? Referring Physician: Dr. Harrington ? Anesthesia: Versed and Fentanyl were ordered and given in my presence at 11:28, procedure ended at 12:37. Supervision of nurse monitored moderate sedation with Versed and Fentanyl was provided for 69 minutes. Total of Versed 2mg and Fentanyl 50mcg were administered by the Smoke Chaser RN Cristal Read. Pre-op Diagnosis: NSTEMI Post-op Diagnosis: 1. Significant obstructive mid RCA disease s/p successful IVUS-guided PCI with BARBIE x 1 2. Significant obstructive LCX/OM disease that will need staged intervention, likely as outpatient when patient has recovered from his acute pancreatitis episode 3. Left ventricular end-diastolic pressure of 13mmHg Procedure(s): 1. Moderate sedation 2. Ultrasound-guided access of the right radial artery 3. Ultrasound-guided access of the right common femoral artery 4. Coronary angiography 5. Left heart cath 6. IVUS-guided PCI of the mid RCA with BARBIE x 1 7. Angioseal closure of the right common femoral artery Access Site: Right radial artery, right common femoral artery Brief History and Clinical Indications: Patient is a 52-year-old male referred for [facility] for NSTEMI. All risks, benefits and alternatives to left heart catheterization with or without percutaneous coronary intervention was discussed at length with the patient. Risk of complications including but not limited to bleeding, infection, arrhythmia, stroke, worsening kidney function, blood loss, groin hematoma, limb loss, emergency coronary artery bypass grafting, and even were discussed with the patient and all questions were answered. The patient understood and wished to proceed. Time out called, patient name, date of , medical record number, allergies, procedure performed, identify Chemical Processor, patient and staff member concurred with accurate data, procedure carried on. Findings: LEFT HEART CATHETERIZATION FINDINGS: 1. Left main: Large caliber vessel. The left main coronary artery is widely patent without any significant obstructive disease. 2. Left anterior descending: Large caliber vessel. The proximal LAD is ectatic. The LAD has mild diffuse disease without any significant obstructive angiographic disease. Diagonal vessels have mild diffuse disease. 3. Left circumflex: Large caliber vessel. The left circumflex has diffuse disease with a 90% stenosis in the mid portion at the level of the bifurcation of a medium-caliber OM-1 vessel. OM-2 has a 90% stenosis in its distal portion at the level of the bifurcation of a small caliber branch vessel. 4. Right coronary artery: Large caliber vessel. The right coronary artery is the dominant artery. The proximal RCA has luminal irregularities. The mid RCA has diffuse disease with a 90% stenosis followed distally with another 90% stenosis. The distal RCA has luminal irregularities. The RPDA and RPLV have mild diffuse disease. 5. Left ventricle: A. End-diastolic pressure 13mmHg. B. LV gram deferred. C. No significant gradient across aortic valve on catheter pullback. Description of Procedure and PCI: Informed consent signed and placed in the chart. Patient transferred to slab conditioner supervisor room. Prepped and draped in usual sterile fashion. 2% lidocaine injected subcutaneously in right wrist area. 22-gauge venipuncture catheter used to access the right radial artery under ultrasound guidance. 6-FR slender sheath placed in right radial artery. Nitroglycerine and Verapamil were given intraarterial through the sheath. Versacore wire advanced under fluoroscopy. Difficulty engaging 5F Tig 4 diagnostic catheter via right radial artery access as catheter kept prolapsing back into the descending aorta, therefore, femoral access pursued. 2% lidocaine in right groin area. M
--- NOTE | 2022-10-10 13:30 | ECG_ITS ---
Measurements Intervals Cool Rate: 91 P: 40 OR: 128 QRS: 3 QRSD: 82 T: -13 QT: 335 QTc: 412 Interpretive Statements SINUS RHYTHM DELAYED PRECORDIAL R/S TRANSITION VOLTAGE CRITERIA FOR LVH BORDERLINE ST-T WAVE ABNORMALITY- INFERIOR LEADS BORDERLINE ECG COMPARED TO ECG 10/09/2022 13:41:38 NO SIGNIFICANT CHANGES Electronically Signed On 10-10-2022 15:20:45 CDT by Andreas Carrera D.O.
--- NOTE | 2022-10-10 15:15 | PM.PNCARD ---
Progress Note: A&P Assessment and Plan (1) Non-ST elevation AK (NSTEMI): Code(s): I21.4 - Non-ST elevation (NSTEMI) myocardial infarction Status: Acute Assessment and Plan: His troponin is elevated at 0.376, 3.5, with peak of 5.36.? EKG did not show any acute STTW changes.? He is chest pain free currently. Given degree of troponin elevation, cannot rule out an acute coronary syndrome. Started on Heparin drip 10/08. Echo 10/09: Left ventricular hypertrophy with vigorous systolic function of 60-65% and grade 1 diastolic dysfunction. Trivial amounts of mitral and pulmonic valve insufficiency. Small to trivial posterior pericardial effusion. Cardiac catheterization 10/10/2022 shows: 1. Significant obstructive mid RCA disease s/p successful IVUS-guided PCI with BARBIE x 1 2. Significant obstructive LCX/OM disease that will need staged intervention, likely as outpatient when patient has recovered from his acute pancreatitis episode 3. Left ventricular end-diastolic pressure of 13mmHg Patient to be on ASA 81mg once daily indefinitely. Loaded with Plavix 600mg x 1 prior to cardiac catheterization. To be on 75mg once daily for at least 1 year. Start high-intensity statin. Continue beta mikel. (2) Pancreatitis: Code(s): K85.90 - Acute pancreatitis without necrosis or infection, unspecified Status: Acute Assessment and Plan: Has acute pancreatitis. Management as per GI and Hospitalist. (3) HTN (hypertension): Code(s): I10 - Essential (primary) hypertension Status: Acute Assessment and Plan: Improved since admission but remains elevated. Home lisinopril has been discontinued because it can rarely cause pancreatitis. Amlodipine 5mg added 10/09. If additional blood pressure control is needed, can increase dose to 10mg. Subjective Date/time seen: 10/10/22 15:15 Interval history: Reason For Visit: NSTEMI HPI: Mr. Messer Is a 52-year-old male with a medical history of hypertension, type 2 diabetes mellitus,? and GERD.? He comes to the hospital now with a chief complaint of a burning sensation that starts in his neck and travels down his esophagus.? He has also been experiencing some right upper quadrant abdominal pain and mid back pain.? His symptoms started yesterday.? ? He denies any cardiac history? but he did undergo a stress test about year ago which according to the patient was negative.? Around that time, was also having some chest discomfort that was thought to be associated with frequent PVCs because of hyperkalemia.? He initially was found to have a mildly elevated troponin of .376 and a troponin peak of 5.36.? We are being asked to see him because of elevated troponin levels.? At the time of my visit with him he is lying comfortably in bed sleeping but awakens to my voice.? He currently denies any chest pain, shortness of breath, palpitations.? Date of service 10/10: Cardiac cath today. Reports abdominal pain. No chest pain. Review of Systems Review of Systems: All systems reviewed & are unremarkable except as noted in HPI and below (HPI) Exam Const: General: no acute distress HENMT: Mouth: Yes moist mucous membranes Eyes: General: appearance normal, both eyes and all related structures Sclera: sclerae normal Neck: Neck: supple Resp: Effort & Inspection: normal respiratory effort Cardio: Rate: regular rate Rhythm: regular rhythm Neuro: Speech: normal speech Extrem: General: normal to inspection Psych: Mental Status: mental status grossly normal Affect: normal affect Objective Data Vital Signs Vital Signs: Vital Signs - 24 hr 10/09/22 16:00 10/09/22 16:00 10/09/22 16:10 Temperature 38.2 C H 37.1 C Pulse Rate 89 88 Respiratory Rate 18 Blood Pressure 150/85 H Pulse Oximetry 95 Oxygen Delivery 10/09/22 16:15 10/09/22 18:00 10/09/22 20:00 Temperature 37.1 C 36.7 C Pulse Rate 94 94 Respiratory Rate 18 Blood Pressure 151/83 H Puls
[2022-10-10] MEDS: ONDANSETRON INJ 4 MG/2 ML VIAL IV PUSH (15:20)
[2022-10-10] MEDS: KETOROLAC 15 MG/ML VIAL (*BKC) IV PUSH (17:19)
[2022-10-10 18:26] LABS: Glucose Point of Care 102 mg/dl (65-105)
[2022-10-10] MEDS: ATORVASTATIN 40 MG TABLET 80 MG PO (18:51)
[2022-10-10 20:34] LABS: Glucose Point of Care 94 mg/dl (65-105)
[2022-10-11] VITALS (12 sets, daily range): BP systolic 126–152; BP diastolic 69–97; PULSE 75–94; RESP 15–20; TEMP 35.9–36.9; O2SAT 93–99
[2022-10-11] MEDS: HYDROmorphone HCL INJ (*CRX) 1 MG/ML SYR IV PUSH ×3 (02:30→10:32)
[2022-10-11 05:10] LABS: Basophils Percent Auto 0.3 % (0.2-1.2); Eosinophils Absolute Auto 0.3 K/mm3 (0-0.3); Eosinophils Percent Auto 3.9 % (0-4.4); Hematocrit 39.8 % (42.0-52.0); Hemoglobin 12.6 g/dL (14.0-18.0); Immature Granulocyte Absolute 0.05 K/mm3 (0.00-0.031); Immature Granulocyte Percent A 0.6 % (0-0.5); Lymphocytes Percent Auto 17.2 % (18.3-44.2); Mean Corpuscular HGB Conc 31.7 g/dl (32-36); Mean Corpuscular Hemoglobin 29.1 pg (26-34); Mean Corpuscular Volume 91.9 fl (80-100); Mean Platelet Volume 10.1 fl (7.4-10.4); Monocytes Absolute Auto 0.9 K/mm3 (0.1-0.6); Monocytes Percent Auto 10.4 % (2.6-8.5); Neutrophils Absolute Auto 5.9 K/mm3 (1.3-6.7); Neutrophils Percent Auto 67.6 % (45.5-73.1); Platelet Count Result 320 k/mm3 (150-375); Red Blood Count 4.33 M/mm3 (4.6-6.20); Red Cell Distribution Width 15.5 % (11.5-14.5); White Blood Count 8.7 K/mm3 (4.5-10.0)
[2022-10-11 05:24] LABS: Alanine Aminotransferase 17 U/L (6-50); Albumin Level 2.8 g/dL (3.5-5.1); Alkaline Phosphatase 41 U/L (38-126); Anion Gap 1 mmol/L (8-16); Aspartate Amino Transferase 25 U/L (17-59); Bilirubin,Total 1.3 mg/dL (0.2-1.3); Blood Urea Nitrogen 10 mg/dL (9-20); Calcium 7.9 mg/dL (8.4-10.2); Carbon Dioxide 25 mmol/L (22-30); Chloride 102 mmol/L (98-107); Estimated CRCL calculation 77 ml/min; Estimated Glomerular Filt Rate > 60; Glucose 88 mg/dL (65-110); Lipase 960 U/L (23-300); Sodium 128 mmol/L (137-145)
[2022-10-11] MEDS: SODIUM CHLORIDE 0.9% IV 1,000 ML 150 ML IV CONT (06:01)
--- NOTE | 2022-10-11 07:49 | WPDGIPROGNO ---
Progress Note: A&P Assessment and Plan (1) Pancreatitis: Code(s): K85.90 - Acute pancreatitis without necrosis or infection, unspecified Status: Acute Assessment and Plan: Patient with acute pancreatitis. Appears to be improving. Lipase in the 900 range. Now with bowel sounds and softer abdomen. Consistent with resolved ileus. Plan to allow liquid diet and advance slowly to a low-fat diet. (2) Non-ST elevation NC (NSTEMI): Code(s): I21.4 - Non-ST elevation (NSTEMI) myocardial infarction Status: Acute Assessment and Plan: Patient at with significant atherosclerotic heart disease on heart catheterization. Follow-up heart catheterization at [facility] anticipated. Burning chest pain is resolved suggesting this was an anginal equivalent. Plan to continue PPI therapy For past possible underlying acid reflux. EGD will be deferred unless cardiology feels necessary . (3) Burning chest pain: Code(s): R07.89 - Other chest pain Status: Acute Assessment and Plan: chest pain resolved likely an anginal equivalent. Plan to continue PPI therapy for possible underlying GE reflux. Defer EGD given his cardiac issues unless cardiology feels necessary. (4) HTN (hypertension): Code(s): I10 - Essential (primary) hypertension Status: Acute Subjective Date/time seen: 10/11/22 07:49 Interval history: Patient alert more comfortable today. Seems more relaxed. States abdominal pain is improved greatly. No chest discomfort. Tolerating liquid diet. Passing flatus no bowel movements yet Review of Systems Review of Systems: review of systems noncontributory. Exam Narrative: Physical exam reveals patient to be alert. Vital signs stable. HEENT exam reveals no icterus. Lungs are clear. Heart without murmur. Abdomen bowel sounds are present. Abdomen is soft. Minimal discomfort noted today. Objective Data Vital Signs Vital Signs: Vital Signs - 24 hr 10/10/22 08:04 10/10/22 08:05 10/10/22 08:00 Temperature 97.8 F Pulse Rate 91 90 92 Respiratory Rate 20 Blood Pressure 149/85 H Pulse Oximetry 95 Oxygen Delivery Fraction of Inspired Oxygen 10/10/22 10:00 10/10/22 08:00 10/10/22 13:00 Temperature 98.8 F Pulse Rate 91 88 Respiratory Rate 16 Blood Pressure 186/96 H Pulse Oximetry 99 Oxygen Delivery Room Air Room Air Fraction of Inspired Oxygen 10/10/22 13:15 10/10/22 14:00 10/10/22 14:15 Temperature Pulse Rate 92 92 105 H Respiratory Rate 16 16 16 Blood Pressure 148/95 H 153/89 H 154/83 H Pulse Oximetry 97 98 98 Oxygen Delivery Room Air Room Air Room Air Fraction of Inspired Oxygen 10/10/22 14:30 10/10/22 13:30 10/10/22 13:45 Temperature Pulse Rate 91 93 91 Respiratory Rate 16 16 16 Blood Pressure 152/88 H 156/90 H 158/96 H Pulse Oximetry 98 98 98 Oxygen Delivery Room Air Room Air Room Air Fraction of Inspired Oxygen 10/10/22 14:45 10/10/22 15:00 10/10/22 15:15 Temperature Pulse Rate 96 92 97 Respiratory Rate 16 16 16 Blood Pressure 125/89 142/91 H 147/92 H Pulse Oximetry 98 97 98 Oxygen Delivery Room Air Room Air Room Air Fraction of Inspired Oxygen 10/10/22 15:30 10/10/22 15:45 10/10/22 16:00 Temperature Pulse Rate 97 91 92 Respiratory Rate 16 16 16 Blood Pressure 141/87 H 133/84 124/75 Pulse Oximetry 97 98 97 Oxygen Delivery Room Air Room Air Room Air Fraction of Inspired Oxygen 10/10/22 16:30 10/10/22 17:00 10/10/22 18:00 Temperature 98.5 F 99.3 F 97.8 F Pulse Rate 94 86 85 Respiratory Rate 18 20 20 Blood Pressure 142/82 H 143/82 H 169/86 H Pulse Oximetry 96 96 95 Oxygen Delivery Fraction of Inspired Oxygen 10/10/22 16:10 10/10/22 18:00 10/10/22 20:00 Temperature Pulse Rate 92 86 86 Respiratory Rate 20 Blood Pressure Pulse Oximetry 95 Oxygen Delivery Room Air Fraction of Inspired Oxygen
[2022-10-11 08:07] LABS: Glucose Point of Care 84 mg/dl (65-105)
[2022-10-11] MEDS: ASPIRIN 81 MG CHEWABLE TABLET PO (08:37)
[2022-10-11] MEDS: CLOPIDOGREL BISULFATE 75 MG TABLET PO (08:37)
[2022-10-11] MEDS: ATORVASTATIN 40 MG TABLET 80 MG PO (08:37)
[2022-10-11] MEDS: METOPROLOL TARTRATE 25 MG TABLET PO (08:37)
[2022-10-11] MEDS: amLODIPine BESYLATE 5 MG TABLET PO (08:38)
[2022-10-11] MEDS: ACETAMINOPHEN 325 MG TABLET 650 MG PO (08:38)
[2022-10-11] MEDS: PANTOPRAZOLE SODIUM IV 40 MG VIAL IV PUSH (08:38)
[2022-10-11 11:57] LABS: Glucose Point of Care 101 mg/dl (65-105)
--- NOTE | 2022-10-11 12:08 | PM.PNCARD ---
Progress Note: A&P Assessment and Plan (1) Non-ST elevation NE (NSTEMI): Code(s): I21.4 - Non-ST elevation (NSTEMI) myocardial infarction Status: Acute Assessment and Plan: His troponin is elevated at 0.376, 3.5, with peak of 5.36.? EKG did not show any acute STTW changes.? Given degree of troponin elevation, cannot rule out an acute coronary syndrome. Treated with Heparin that started on 10/08. Echo 10/09: Left ventricular hypertrophy with vigorous systolic function of 60-65% and grade 1 diastolic dysfunction. Trivial amounts of mitral and pulmonic valve insufficiency. Small to trivial posterior pericardial effusion. Cardiac catheterization 10/10/2022 shows: 1. Significant obstructive mid RCA disease s/p successful IVUS-guided PCI with BARBIE x 1 2. Significant obstructive LCX/OM disease that will need staged intervention, likely as outpatient when patient has recovered from his acute pancreatitis episode 3. Left ventricular end-diastolic pressure of 13mmHg Patient to be on ASA 81mg once daily indefinitely. Loaded with Plavix 600mg x 1 prior to cardiac catheterization. To be on 75mg once daily for at least 1 year. Start high-intensity statin. Continue beta mikel. Will arrange for outpatient follow up and outpatient staged intervention of residual LCX/OM disease. (2) Pancreatitis: Code(s): K85.90 - Acute pancreatitis without necrosis or infection, unspecified Status: Acute Assessment and Plan: Has acute pancreatitis. Management as per GI and Hospitalist. Seems to be improving. (3) HTN (hypertension): Code(s): I10 - Essential (primary) hypertension Status: Acute Assessment and Plan: Improved since admission but remains elevated. Home lisinopril has been discontinued because it can rarely cause pancreatitis. Amlodipine 5mg added 10/09. If additional blood pressure control is needed, can increase dose to 10mg. Plan Recommendations/plan discussed with Hospitalist, Dr. Guzman. Subjective Date/time seen: 10/11/22 12:08 Interval history: Reason For Visit: NSTEMI HPI: Mr. Messer Is a 52-year-old male with a medical history of hypertension, type 2 diabetes mellitus,? and GERD.? He comes to the hospital now with a chief complaint of a burning sensation that starts in his neck and travels down his esophagus.? He has also been experiencing some right upper quadrant abdominal pain and mid back pain.? His symptoms started yesterday.? ? He denies any cardiac history? but he did undergo a stress test about year ago which according to the patient was negative.? Around that time, was also having some chest discomfort that was thought to be associated with frequent PVCs because of hyperkalemia.? He initially was found to have a mildly elevated troponin of .376 and a troponin peak of 5.36.? We are being asked to see him because of elevated troponin levels.? At the time of my visit with him he is lying comfortably in bed sleeping but awakens to my voice.? He currently denies any chest pain, shortness of breath, palpitations.? Date of service 10/10: Cardiac cath today. Reports abdominal pain. No chest pain. Date of service 10/11: Feeling better. Tolerating clear liquids. No chest pain. Abdominal pain is improving. Review of Systems Review of Systems: All systems reviewed & are unremarkable except as noted in HPI and below (HPI) Exam Const: General: no acute distress HENMT: Mouth: Yes moist mucous membranes Eyes: General: appearance normal, both eyes and all related structures Sclera: sclerae normal Resp: Effort & Inspection: normal respiratory effort Cardio: Rate: regular rate Rhythm: regular rhythm Neuro: Speech: normal speech Psych: Mental Status: mental status grossly normal Affect: normal affect Objective Data Vital Signs Vital Signs: Vital Signs - 24 hr 10/10/22 13:00 10/10/22 13:15 10/10/22 14:00 Temperature 37.1 C Pulse Rate 88 92 92 Respiratory Rate 16
[2022-10-11] MEDS: LORazepam INJ (*CRX) 2 MG/ML VIAL 1 MG IV PUSH (13:02)
[2022-10-11 15:10] LABS: Lipase 935 U/L (23-300)
--- NOTE | 2022-10-11 16:12 | PM.DS ---
DS: Admitting Diagnosis Discharge Date 10/11/22 Admitting Diagnosis abdominal pain DS: Discharge Diagnosis Discharge Diagnosis (1) Non-ST elevation HI (NSTEMI): Code(s): I21.4 - Non-ST elevation (NSTEMI) myocardial infarction Status: Acute Assessment and Plan: Patient over the past 2 weeks has been having burning chest pain. Patient states his primary care doctor felt this was acid reflux but symptoms not improving with omeprazole. Given his risk factors, cardiac etiology was suspected. EKG on admission shows normal sinus rhythm with borderline ST-T wave changes in inferior leads but these appear to be chronic when compared to an old EKG. His 1st troponin was elevated and he was moved to the IMU. He was given aspirin and metoprolol. His subsequent troponins peaked at 5.4. Cardiology was consulted. Heparin drip was started. Echo showing EF 60-65% with moderate concentric LVH and Grade I diastolic dysfunction. Trop trending down. Plan for [facility] today. (2) Pancreatitis: Code(s): K85.90 - Acute pancreatitis without necrosis or infection, unspecified Status: Acute Assessment and Plan: Patient presents with abdominal pain found to elevated lipase and CT scan consistent with acute interstitial pancreatitis. Lipase was 9889. Patient denies alcohol use. No concerning findings by the CT scan for gallstones or acute cholecystitis. TG level 158. RUQ US showing normal liver and GB. No gallstones. Etiology of the pancreatitis is unclear. Viral? Consider also a penetrating peptic ulcer that may explain the burning sensation in his neck and chest. Lipases better at 1980. GI consulted for possible EGD. Continue Dilaudid p.r.n. for pain control. Continue IV fluids. Continue Protonix. Start diet when okay with others (3) Hyperkalemia: Code(s): E87.5 - Hyperkalemia Status: Acute Assessment and Plan: Patient with hyperkalemia on admission. Related to lisinopril with associated renal insufficiency. Repeat potassium levels have been normal. TSH and Cortisol normal. Continue to follow. (4) Burning chest pain: Code(s): R07.89 - Other chest pain Status: Acute Assessment and Plan: Either atypical cardiac ischemia or related to GERD/PUD. As above (5) HTN (hypertension): Code(s): I10 - Essential (primary) hypertension Status: Acute Assessment and Plan: Blood pressure was markedly elevated on admission related to pain. He may have uncontrolled hypertension as well as noted by his Echo. Lisinopril was held given the hyperkalemia. Although rare, lisinopril has been known to cause pancreatitis. Metoprolol added due to the elevated Troponins. Norvasc added as well. BP better controlled overall. Hydralazine will be available as needed for severe hypertension. Follow (6) Diabetes: Qualifiers: Diabetes mellitus complication status: with hyperglycemia Diabetes mellitus senior care insulin use: without middle or intermediate school principal use Diabetes mellitus type: type 2 Qualified Code(s): E11.65 - Type 2 diabetes mellitus with hyperglycemia Code(s): E11.9 - Type 2 diabetes mellitus without complications Status: Acute Assessment and Plan: A1c 6.9. The patient's blood glucose was reviewed on 10/10 Glucose remains reasonably well controlled. Continue AccuCheks covering with sliding scale. Hypoglycemia protocol available as needed. Continue to monitor. Continue to hold metformin. (7) Renal insufficiency: Code(s): N28.9 - Disorder of kidney and ureter, unspecified Status: Acute Assessment and Plan: Baseline creatinine runs 1.1-1.4. Creatinine was 1.5 on admission and felt to have DARRYL. He was started on IV fluids. Cr has trended down to normal. Continue to follow. (8) Hyponatremia: Code(s): E87.1 - Hypo-osmolality and hyponatremia Status: Acute Assessment and Plan: Sodium low at 131 and dropped to 126.
== END 2022-10-11 18:08 | disposition home or self-care (01) | DRG 174 ==
LOC: ANHED 07:46 → ANH2MED 10:43 → ANHIMU 15:21
PROVIDERS: Internal Medicine; Internal Medicine Cardiovascular Disease; Admitting Provider Internal Medicine; Emergency Provider Emergency Medicine; PCP Internal Medicine; Visit Provider Student in an Organized Health Care Education/Training Program
PROC: 4A023N7 Measurement of Cardiac Sampling and Pressure, Left Heart, Percutaneous Approach (ICD-10-PCS; CPT 93452; principal; 2022-10-10 08:30)
PROC: 027034Z Dilation of Coronary Artery, One Artery with Drug-eluting Intraluminal Device, Percutaneous Approach (ICD-10-PCS; CPT 36140; 2022-10-10 08:30)
PROC: 027034Z Dilation of Coronary Artery, One Artery with Drug-eluting Intraluminal Device, Percutaneous Approach (ICD-10-PCS; 2022-10-10 08:30)
PROC: 027034Z Dilation of Coronary Artery, One Artery with Drug-eluting Intraluminal Device, Percutaneous Approach (ICD-10-PCS; 2022-10-10 08:30)
PROC: 027034Z Dilation of Coronary Artery, One Artery with Drug-eluting Intraluminal Device, Percutaneous Approach (ICD-10-PCS; 2022-10-10 08:30)
DX: I21.4 Non-ST elevation (NSTEMI) myocardial infarction (principal); K85.80 Other acute pancreatitis without necrosis or infection; N17.9 Acute kidney failure, unspecified; I25.119 Atherosclerotic heart disease of native coronary artery with unspecified angina pectoris; E87.5 Hyperkalemia; I10 Essential (primary) hypertension; E11.9 Type 2 diabetes mellitus without complications; E87.1 Hypo-osmolality and hyponatremia
CPT/HCPCS: 36140; 36415; 71045; 74177; 76705; 80048; 80053; 80061; 81001; 82533; 82948; 83036; 83690; 84443; 84484; 85025; 85610; 85730; 92978; 93005; 93458; 94002; 96361; 96374; 96375; 99285; A9270; C1725; C1753; C1760; C1769; C1874; C1887; C1894; C8929; C9113; C9600; G0269; J0360; J0583; J1170; J1644; J1885; J2060; J2250; J2305; J2405; J3010; J7030; J7040; Q9957; Q9967

== ENCOUNTER 2022-12-13 09:21 | Emergency (ER) | payer OTHER, SELFPAY ==
[2022-12-13 09:52] VITALS: PULSE 76; RESP 16; TEMP 37.1; O2SAT 98
--- NOTE | 2022-12-13 11:14 | ED.LOWEXIN ---
HPI - Extremity Injury (Lower) General Chief Complaint: Extremity Injury, Lower Stated Complaint: Hamstring Left Time Seen by Provider: 12/13/22 09:30 History of Present Illness HPI Narrative: 52-year-old male presents to the emergency room for evaluation of left leg injury. Patient states yesterday he bent over and heard a pop to the posterior thigh. States the site is warm to touch. States he noticed bruising to the back of his leg. Reports when he is ambulatory he feels like his legs only give out on him. Denies any other injuries. Denies any knee pain or hip pain. Related Data Home Medications Medication Instructions Recorded Confirmed famotidine 20 mg tablet 20 mg PO BID 10/08/22 10/08/22 Allergies Allergy/AdvReac Type Severity Reaction Status Date / Time hydrocodone [From Vicodin] Allergy Rash Verified 12/13/22 09:22 Review of Systems Review of Systems: CONSTITUTIONAL: Denies fever, chills, or sweats. EYES: Denies visual changes, redness, or discharge. ENT: Denies rhinorrhea, congestion, sore throat, or otalgia. CARDIOVASCULAR: Denies chest pain, palpitations, or edema. RESPIRATORY: Denies cough or dyspnea. GASTROINTESTINAL: Denies abdominal pain, nausea, vomiting, or diarrhea. GENITOURINARY: Denies dysuria or hematuria. SKIN: Denies rash or itching. MUSCULOSKELETAL: Reports NEUROLOGIC: Denies headache, numbness, dizziness, or weakness. PSYCHIATRIC: Denies anxiety or depression. [facility] Past Medical History Medical History Diabetes Gout Hepatitis C treated HTN (hypertension) Surgical History Surgical History H/O shoulder surgery bilateral rotator cuff repairs H/O total hip arthroplasty right in July 2022 History of surgery on arm left bicep Family History Family History Mother Hypertension Diabetes mellitus Social History Social History Social History: Lifelong nonsmoker. No history of drug use. Denies alcohol use. Lives with his significant other. He is a full code. He nominates his significant other to be the individual to make medical decisions for him if he is unable. Smoking status: Never smoker Alcohol intake: never Substance use: never Substance use type: does not use Lack of Transportation: No Lack of Food: Never True Current Housing: I Have Housing Concerned About Future Housing: No Difficulty Paying Gas/Electric Bills: No Difficulty Paying for Meds: No Currently Unemployed: YES Education: High School Diploma/GED Difficulty w/ Childcare or Family Care: No Gender identity (if verbalized by the patient): Male Spiritual care concerns: No Exam Narrative: GENERAL: Well-appearing, well-nourished, no physical limitations, and in no acute distress. HEAD: Normocephalic, atraumatic. EYES: Conjunctivae normal, PERRLA and EOMI. CHEST: Clear to auscultation. No respiratory distress. No wheezes rales or rhonchi. HEART: Regular rate and rhythm. No murmur heard. Normal peripheral pulses. BACK: No cervical/thoracic/lumbar tenderness, step-offs, bony abnormality; FROM EXTREMITIES: Left leg: Ecchymosis and tenderness noted to the posterior thigh. Limited range of motion with hip flexion and full hip extension. Antalgic gait noted neurovascular is intact distally SKIN: Warm, dry, no rash. No noted wounds NEURO: No focal deficits. Alert and oriented x3. MAEW. CN's II-XI intact bilaterally, normal gait PSYCH: Cooperative. Normal mood and affect. Course Vital Signs Vital signs: Vital Signs Temperature 37.1 C 12/13/22 09:52 Pulse Rate 76 12/13/22 09:52 Respiratory Rate 16 12/13/22 09:52 Pulse Oximetry 98 12/13/22 09:52 Oxygen Delivery Room Air 12/13/22 09:52 Temperature 37.1 C 12/13/22 09:52 Pulse Rate 76 12/13
[2022-12-13 11:37] VITALS: BP 128/87; PULSE 72; RESP 14; TEMP 36.8; O2SAT 100
== END 2022-12-13 11:38 | disposition home or self-care (01) ==
LOC: ANHED 11:18
PROVIDERS: Emergency Provider Nurse Practitioner Family; PCP Internal Medicine
DX: S70.12XA Contusion of left thigh, initial encounter (principal); E11.9 Type 2 diabetes mellitus without complications; M10.9 Gout, unspecified; I10 Essential (primary) hypertension; Z86.19 Personal history of other infectious and parasitic diseases; Z96.641 Presence of right artificial hip joint; X50.9XXA Other and unspecified overexertion or strenuous movements or postures, initial encounter; Z79.82 Long term (current) use of aspirin
CPT/HCPCS: 99283

== ENCOUNTER 2023-08-10 10:45 | Emergency (ER) | payer OTHER, SELFPAY ==
--- NOTE | ~2023-08-10 | CT_ITS ---
EXAMINATION: CT cervical spine wo con DATE: 08/10/2023 12:32 INDICATION: Neck pain. Injury. TECHNIQUE: Computed tomography (CT) of the cervical spine was performed without intravenous contrast. Automated exposure control and iterative reconstruction technique were employed. The dose-length pro duct was 551.87 mGy-cm. COMPARISON: None FINDINGS: There is cerumen in the external auditory canals. There is a degrees dextrocurvature of cer vical spine. Vertebral body heights are normal. There is mildly decreased disc height at C5-C6. The f ollowing disc levels are specifically discussed: C2-C3: There is mild bilateral uncovertebral joint osteoarthritis. There is mild right and moderate l eft facet joint osteoarthritis. There is no neural foraminal stenosis. There is no central canal sten osis. C3-C4: There is mild bilateral uncovertebral joint osteoarthritis. There is mild bilateral facet join t osteoarthritis. There is mild left neural foraminal stenosis. There is mild central canal stenosis. C4-C5: There is no uncovertebral joint osteoarthritis. There is mild bilateral facet joint osteoarthr itis. There is no neural foraminal stenosis. There is mild central canal stenosis. C5-C6: There is mild bilateral uncovertebral joint osteoarthritis. There is mild bilateral facet join t osteoarthritis. There is mild left neural foraminal stenosis. There is mild central canal stenosis. C6-C7: There is no uncovertebral joint osteoarthritis. There is mild bilateral facet joint osteoarthr itis. There is no neural foraminal stenosis. There is no central canal stenosis. C7-T1: There is no uncovertebral joint osteoarthritis. There is mild right and moderate left facet nadira int osteoarthritis. There is mild left neural foraminal stenosis. There is no central canal stenosis. IMPRESSION: 1. No fracture. 2. Mild cervical spondylosis. Reviewed, dictated and finalized at location A.
--- NOTE | ~2023-08-10 | CT_ITS ---
EXAMINATION: CT thoracic spine wo con DATE: 08/10/2023 12:32 INDICATION: Neck pain. Injury. TECHNIQUE: Computed tomography (CT) of the thoracic spine was performed without intravenous contrast. Automated exposure control and iterative reconstruction technique were employed. The dose-length pro duct was 1141.09 mGy-cm. COMPARISON: None FINDINGS: There is 4 degrees dextrocurvature of thoracic spine. There is mild chronic anterior wedgin g of T7-L1 vertebral bodies. There are bridging endplate osteophytes from T7 to T10. There is mildly decreased disc height at many levels. There is multilevel ndfc-[id number]-litdazae facet joint osteoarthritis . No neural foraminal stenosis or central canal stenosis. IMPRESSION: 1. No fracture. 2. Mild thoracic spondylosis. Reviewed, dictated and finalized at location A.
[2023-08-10 10:48] VITALS: BP 147/91; PULSE 98; RESP 18; TEMP 36.6; O2SAT 97
[2023-08-10] MEDS: KETOROLAC (*BKC) 60 MG/2 ML VIAL IM (12:21)
--- NOTE | 2023-08-10 13:10 | ED.GENADULT ---
HPI - General Adult General Chief complaint: Neck Pain/Injury Stated complaint: think I broke neck Time Seen by Provider: 08/10/23 12:02 History of Present Illness HPI narrative: Patient is a 52-year-old male who presents ER with pain to the neck and upper back. Reports he was doing squats with 500 lb 1 week ago when he had sudden onset pain. Is been okay with ibuprofen but has worsened over last 2 days. He has difficulty with turning his head. No numbness or tingling to the arms or legs. No difficulty with urination / defecation. Has been unable to sleep for 2 nights. Related Data Home Medications Medication Instructions Recorded Confirmed famotidine 20 mg tablet 20 mg PO BID 10/08/22 10/08/22 Allergies Allergy/AdvReac Type Severity Reaction Status Date / Time hydrocodone [From Vicodin] Allergy Rash Verified 08/10/23 10:46 Review of Systems Review of Systems: All systems reviewed & are unremarkable except as noted in HPI and below Constitutional: Constitutional: Reports no additional constitutional complaints ENT: Reports system reviewed and no additional complaints, except as documented Cardiovascular: Cardiovascular: Reports no additional cardiovascular complaints Respiratory: Respiratory: Reports no additional respiratory complaints Musculoskeletal: Musculoskeletal: Reports back pain, Denies arthralgias, Denies joint swelling and Reports muscle cramps Neurologic: Reports system reviewed and no additional complaints, except as documented [facility] Past Medical History Medical History Diabetes Gout Hepatitis C treated HTN (hypertension) Surgical History Surgical History H/O shoulder surgery bilateral rotator cuff repairs H/O total hip arthroplasty right in July 2022 History of surgery on arm left bicep Family History Family History Mother Hypertension Diabetes mellitus Social History Social History Social History: Lifelong nonsmoker. No history of drug use. Denies alcohol use. Lives with his significant other. He is a full code. He nominates his significant other to be the individual to make medical decisions for him if he is unable. Smoking status: Never smoker Alcohol intake: never Substance use: never Substance use type: does not use Lack of Transportation: No Lack of Food: Never True Current Housing: I Have Housing Concerned About Future Housing: No Difficulty Paying Gas/Electric Bills: No Difficulty Paying for Meds: No Currently Unemployed: YES Education: High School Diploma/GED Difficulty w/ Childcare or Family Care: No Gender identity (if verbalized by the patient): Male Spiritual care concerns: No Exam Narrative: GENERAL: Well-appearing, well-nourished, and in no acute distress. HEAD: Normocephalic, atraumatic. ENT: Mucous membranes moist. NECK: Supple. No midline tenderness of the C-spine, there is tenderness at the level of T2 with paraspinal tenderness as well. CHEST: Clear to auscultation. No respiratory distress. HEART: Regular rate and rhythm. Normal peripheral pulses. EXTREMITIES: Normal range of motion. No edema. NEURO: Alert and oriented x3. PSYCH: Normal mood and affect. Course Course Emergency Course: Patient resting comfortably. Informed of results. Discharge home with anti-inflammatories and muscle relaxers. Toradol IM here. Vital Signs Vital signs: Vital Signs Temperature 98 F 08/10/23 10:48 Pulse Rate 98 08/10/23 10:48 Respiratory Rate 18 08/10/23 10:48 Blood Pressure 147/91 H 08/10/23 10:48 Pulse Oximetry 97 08/10/23 10:48 Oxygen Delivery Room Air 08/10/23 10:48 Temperature 98 F 08/10/23 10:48 Pulse Rate 98 08/10/23 10:48 Respiratory Rate 18 08/10/23 10:48 B
[2023-08-10 13:35] VITALS: BP 140/80; PULSE 90; RESP 18; TEMP 36.6; O2SAT 98
== END 2023-08-10 13:35 | disposition home or self-care (01) ==
PROVIDERS: Emergency Provider Emergency Medicine
DX: S29.012A Strain of muscle and tendon of back wall of thorax, initial encounter (principal); I10 Essential (primary) hypertension; E11.9 Type 2 diabetes mellitus without complications; M10.9 Gout, unspecified; Z96.641 Presence of right artificial hip joint; Z86.19 Personal history of other infectious and parasitic diseases; M47.812 Spondylosis without myelopathy or radiculopathy, cervical region; M47.814 Spondylosis without myelopathy or radiculopathy, thoracic region; X50.0XXA Overexertion from strenuous movement or load, initial encounter; X50.3XXA Overexertion from repetitive movements, initial encounter
CPT/HCPCS: 72125; 72128; 96372; 99284; J1885

== ENCOUNTER 2023-10-30 13:54 | Emergency (ER) | payer OTHER, SELFPAY ==
--- NOTE | ~2023-10-30 | CT_ITS ---
EXAMINATION: CT cervical spine wo con DATE: 10/30/2023 15:50 INDICATION: Neck injury with bilateral cervical radiculopathy TECHNIQUE: Computed tomography (CT) of the cervical spine was performed without intravenous contrast. Automated exposure control and iterative reconstruction technique were employed. The dose-length pro duct was 513.26 mGy-cm. COMPARISON: 08/10/2023 FINDINGS: Alignment is normal. Vertebral body heights are normal. No fracture. Mild disc height loss at C5-C6. There is mild central canal stenosis at C3-C4 through C5-C6. No appreciable interval change in the mu ltilevel mild to moderate cervical facet osteoarthritis and minimal to mild uncovertebral osteoarthri tis. This contributes to mild neural foraminal stenosis on the left at C3-C4, C5-C6 and minimal at C6 -C7 and C7-T1. No interval change in subcutaneous edema posterior to the cervical spine. Cervical sof t tissues are otherwise unremarkable. Apices of the lungs are clear. IMPRESSION: 1. Unchanged mild cervical spondylosis. No acute osseous abnormality. Reviewed, dictated and finalized at location A.
[2023-10-30 14:07] VITALS: BP 153/88; PULSE 101; RESP 18; TEMP 37.1; O2SAT 98
[2023-10-30 15:50] VITALS: BP 149/85; PULSE 92; RESP 19; O2SAT 99
[2023-10-30] MEDS: ACETAMINOPHEN 500 MG TABLET 1000 MG PO (15:52)
[2023-10-30] MEDS: methocarbamoL 750 MG TABLET 1500 MG PO (15:53)
--- NOTE | 2023-10-30 16:24 | ED.GENADULT ---
HPI - General Adult General Chief complaint: Neck Pain/Injury Stated complaint: fell last week, hit neck & has tingling down arms Time Seen by Provider: 10/30/23 14:46 History of Present Illness HPI narrative: This is a 53-year-old male presenting ED with chief complaint of neck pain. Patient fell on his pool landing on his neck 1 week ago. Since then he has been having pain in his neck and his upper shoulders. He notes occasional pins and needle sensation in his arms but no weakness or loss of sensation. 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 No other injuries. Related Data Home Medications Medication Instructions Recorded Confirmed famotidine 20 mg tablet 20 mg PO BID 10/08/22 10/08/22 Allergies Allergy/AdvReac Type Severity Reaction Status Date / Time hydrocodone [From Vicodin] Allergy Rash Verified 10/30/23 14:10 [facility] Past Medical History Medical History Diabetes Gout Hepatitis C treated HTN (hypertension) Surgical History Surgical History H/O shoulder surgery bilateral rotator cuff repairs H/O total hip arthroplasty right in July 2022 History of surgery on arm left bicep Family History Family History Mother Hypertension Diabetes mellitus Social History Social History Social History: Lifelong nonsmoker. No history of drug use. Denies alcohol use. Lives with his significant other. He is a full code. He nominates his significant other to be the individual to make medical decisions for him if he is unable. Smoking status: Never smoker Alcohol intake: never Substance use: never Substance use type: does not use Lack of Transportation: No Lack of Food: Never True Current Housing: I Have Housing Concerned About Future Housing: No Difficulty Paying Gas/Electric Bills: No Difficulty Paying for Meds: No Currently Unemployed: YES Education: High School Diploma/GED Difficulty w/ Childcare or Family Care: No Gender identity (if verbalized by the patient): Male Spiritual care concerns: No Exam Narrative: APPEARANCE: No apparent distress. Head: atraumatic. EYES: EOMI, NOSE: Atraumatic NECK: Tenderness to palpation at C6-C7 and in the paracervical and trapezius muscles. RESPIRATORY: No increased rate of breathing CARDIOVASCULAR: RRR, ABDOMINAL: Non-distended MUSCULOSKELETAl: No obvious deformities NEURO: Alert. Cranial nerves 2-12 grossly intact. Sensation light touch, motor function cerebellar function intact for 4 extremities. Gait exam was normal. SKIN:: Warm, dry. Normal color PSYCHIATRIC: Normal affect Course Vital Signs Vital signs: Vital Signs Temperature 98.7 F 10/30/23 14:07 Pulse Rate 101 H 10/30/23 14:07 Respiratory Rate 18 10/30/23 14:07 Blood Pressure 153/88 H 10/30/23 14:07 Pulse Oximetry 98 10/30/23 14:07 Oxygen Delivery Room Air 10/30/23 14:07 Temperature 98.7 F 10/30/23 14:07 Pulse Rate 101 H 10/30/23 14:07 Respiratory Rate 18 10/30/23 14:07 Blood Pressure 153/88 H 10/30/23 14:07 Pulse Oximetry 98 10/30/23 14:07 Oxygen Delivery Room Air 10/30/23 14:07 Medical Decision Making [facility] Narrative Medical decision making narrative: -Course: 53-year-old male presenting with neck pain after a fall. CT negative. Patient has some radicular symptoms but no weakness. In fact he is continuing to lift weights despite this injury. Neurologic exam is normal. The patient will be treated with NSAIDs and muscle relaxers. Given primary care follow-up return precautions. -DDX includes but is not limited to: Cervical radiculopathy, muscle strain -Independent interpretation of studies: CT negative for fracture -Interventi
[2023-10-30 16:43] VITALS: BP 144/86; PULSE 79; RESP 17; TEMP 36.8; O2SAT 99
== END 2023-10-30 16:44 | disposition home or self-care (01) ==
PROVIDERS: Emergency Provider Emergency Medicine; PCP Internal Medicine Gastroenterology
DX: S19.9XXA Unspecified injury of neck, initial encounter (principal); E11.9 Type 2 diabetes mellitus without complications; I10 Essential (primary) hypertension; M10.9 Gout, unspecified; Z96.641 Presence of right artificial hip joint; Z86.19 Personal history of other infectious and parasitic diseases; Z79.899 Other long term (current) drug therapy; Z79.82 Long term (current) use of aspirin; W16.032A Fall into swimming pool striking wall causing other injury, initial encounter
CPT/HCPCS: 72125; 99284; A9270

== ENCOUNTER 2024-01-06 03:49 | Emergency (ER) | payer OTHER, SELFPAY ==
[2024-01-06] VITALS (23 sets, daily range): BP systolic 124–172; BP diastolic 84–102; PULSE 83–100; RESP 10–20; TEMP 36.9; O2SAT 92–100
--- NOTE | ~2024-01-06 | XR_ITS ---
EXAMINATION: XR chest 1V portable DATE: 01/06/2024 04:19 INDICATION: Chest pain and shortness of breath TECHNIQUE: frontal view of the chest was obtained. COMPARISON: Chest radiograph dated 10/08/2022 FINDINGS: The lungs remain clear with no focal airspace opacities, pulmonary edema, pleural effusion or pneumot horax. The cardiomediastinal silhouette is normal. IMPRESSION: 1. No acute cardiopulmonary disease. Reviewed, dictated and finalized at location A.
--- NOTE | 2024-01-06 03:50 | ECG_ITS ---
Test Date: 2024-01-06 03:55:24 Measurements Intervals [place] Rate: 96 P: 61 [place]: 128 QRS: 24 QRSD: 85 T: 48 QT: 335 QTc: 425 Interpretive Statements SINUS RHYTHM POSSIBLE LEFT ATRIAL ENLARGEMENT [-0.1mV P WAVE IN V1/V2] NONSPECIFIC ST & T-WAVE ABNORMALITY No previous ECG available for comparison Electronically Signed On 01-06-2024 11:34:06 CDT by Mateus Woodruff M.D.
[2024-01-06 04:08] LABS: Basophils Absolute Auto 0.1 K/mm3 (0.0-0.1); Basophils Percent Auto 0.3 % (0.2-1.2); Eosinophils Absolute Auto 0.1 K/mm3 (0-0.3); Eosinophils Percent Auto 0.4 % (0-4.4); Hematocrit 49.4 % (42.0-52.0); Hemoglobin 16.3 g/dL (14.0-18.0); Immature Granulocyte Absolute 0.11 K/mm3 (0.00-0.031); Immature Granulocyte Percent A 0.7 % (0-0.5); Lymphocytes Absolute Auto 2.71 K/mm3 (0.9-3.2); Lymphocytes Percent Auto 17.2 % (18.3-44.2); Mean Corpuscular Hemoglobin 29.8 pg (26-34); Mean Corpuscular Volume 90.3 fl (80-100); Monocytes Absolute Auto 1.3 K/mm3 (0.1-0.6); Monocytes Percent Auto 8.2 % (2.6-8.5); Neutrophils Absolute Auto 11.5 K/mm3 (1.3-6.7); Neutrophils Percent Auto 73.2 % (45.5-73.1); Platelet Count Result 501 k/mm3 (150-375); Red Blood Count 5.47 M/mm3 (4.6-6.20); Red Cell Distribution Width 14.9 % (11.5-14.5); White Blood Count 15.7 K/mm3 (4.5-10.0)
[2024-01-06] MEDS: ASPIRIN 81 MG CHEWABLE TABLET 324 MG PO (04:08)
[2024-01-06] MEDS: NITROGLYCERIN SL 0.4 MG TABLET SUBLINGUAL (04:09)
[2024-01-06] MEDS: MORPHINE SULFATE (*CRX) 4 MG/ML INJ IV PUSH (04:10)
[2024-01-06 04:18] LABS: Alanine Aminotransferase 27 U/L (6-50); Albumin Level 4.1 g/dL (3.5-5.1); Alkaline Phosphatase 120 U/L (38-126); Anion Gap 13 mmol/L (4-12); Aspartate Amino Transferase 30 U/L (17-59); Bilirubin,Total 1.2 mg/dL (0.2-1.3); Blood Urea Nitrogen 15 mg/dL (9-20); Calcium 9.3 mg/dL (8.4-10.2); Carbon Dioxide 24 mmol/L (22-30); Chloride 94 mmol/L (98-107); Estimated CRCL calculation 76 ml/min; Estimated Glomerular Filt Rate > 60; Glucose 285 mg/dL (65-110); Lipase 273 U/L (23-300); Potassium 4.4 mmol/L (3.4-5.0); Prothrombin Time 13.4 Seconds (11.1-14.7); Sodium 131 mmol/L (137-145)
[2024-01-06 04:19] LABS: Partial Thromboplastin Time 25.7 Seconds (22.3-36.8)
[2024-01-06 04:29] LABS: Troponin I 0.012 ng/mL (0.000-0.034)
--- NOTE | 2024-01-06 04:43 | ED.GENADULT ---
HPI - General Adult General Chief complaint: Chest Pain <Justice Schultz MD - Last Filed: 01/06/24 05:04> Stated complaint: chest pain difficulty breathing <Justice Schultz MD - Last Filed: 01/06/24 05:04> Time Seen by Provider: 01/06/24 03:50 <Justice Schultz MD - Last Filed: 01/06/24 05:04> History of Present Illness HPI narrative: Patient 53-year-old gentleman who presents emergency department with chief complaint of left-sided chest discomfort and shortness of breath patient reports that he noticed a fluttering feeling in his chest reported that he had some tightness and heaviness on the left side of his chest patient reports about a year ago he had an episode of pancreatitis and also had 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 Lentz with cardiology. Patient states his pain is doing better upon arrival the emergency department. <Justice Schultz MD - Last Filed: 01/06/24 05:04> Patient 53-year-old gentleman who presents to the emergency department with chief complaint of left-sided chest discomfort and shortness of breath patient reports that he noticed a fluttering feeling in his chest reported that he had some tightness and heaviness on the left side of his chest patient reports about a year ago he had an episode of pancreatitis and also had 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 Lentz with cardiology. Patient states his pain is doing better upon arrival the emergency department. <Darrell Henderson MD - Last Filed: 01/06/24 16:37> Related Data Home medications: Home Medications Medication Instructions Recorded Confirmed famotidine 20 mg tablet 20 mg PO BID 10/08/22 10/08/22 <Justice Schultz MD - Last Filed: 01/06/24 05:04> Allergies/adverse reactions: Allergies Allergy/AdvReac Type Severity Reaction Status Date / Time hydrocodone [From Vicodin] Allergy Rash Verified 01/06/24 03:59 <Justice Schultz MD - Last Filed: 01/06/24 05:04> Review of Systems Review of Systems: A 10 system review of systems was completed on the patient and is negative except for what is stated in the HPI. Nursing and ancillary documentation was reviewed. <Justice Schultz MD - Last Filed: 01/06/24 05:04> [facility] Past Medical History Medical History: Medical History Diabetes Gout Hepatitis C treated HTN (hypertension) <Justice Schultz MD - Last Filed: 01/06/24 05:04> Surgical History Surgical History: Surgical History H/O shoulder surgery bilateral rotator cuff repairs H/O total hip arthroplasty right in July 2022 History of surgery on arm left bicep <Justice Schultz MD - Last Filed: 01/06/24 05:04> Family History Family History: Family History Mother Hypertension Diabetes mellitus <Justice Schultz MD - Last Filed: 01/06/24 05:04> Social History Social History: Social History Social History: Lifelong nonsmoker. No history of drug use. Denies alcohol use. Lives with his significant other. He is a full code. He nominates his significant other to be the individual to make medical decisions for him if he is unable. Smoking status: Never smoker Alcohol intake: never Substance use: never Substance use type: does not use Lack of Transportation: No Lack of Food: Never True Current Housing: I Have Housing Concerned About Future Housing: No Difficulty Paying Gas/Electric Bills: No Difficulty Paying for Meds: No Currently Unemployed: YES Education: High School Diploma/GED Difficulty w/ Childcar
[2024-01-06] MEDS: LORazepam INJ (*CRX) 2 MG/ML VIAL 0.5 MG IV PUSH (05:26)
--- NOTE | 2024-01-06 07:08 | ECG_ITS ---
Test Date: 2024-01-06 07:16:40 Measurements Intervals [place] Rate: 87 P: 59 [place]: 133 QRS: 14 QRSD: 82 T: 19 QT: 350 QTc: 423 Interpretive Statements SINUS RHYTHM NONSPECIFIC T-WAVE ABNORMALITY Compared to ECG 01/06/2024 03:55:24 No significant changes Electronically Signed On 01-06-2024 11:38:19 CDT by Mateus Woodruff M.D.
[2024-01-06 07:42] LABS: Troponin I 0.014 ng/mL (0.000-0.034)
== END 2024-01-06 09:15 | disposition home or self-care (01) ==
PROVIDERS: Emergency Provider Emergency Medicine; PCP Internal Medicine Gastroenterology
DX: R07.9 Chest pain, unspecified (principal); I10 Essential (primary) hypertension; E11.9 Type 2 diabetes mellitus without complications; M10.9 Gout, unspecified; Z86.19 Personal history of other infectious and parasitic diseases; Z79.02 Long term (current) use of antithrombotics/antiplatelets; Z79.82 Long term (current) use of aspirin
CPT/HCPCS: 36415; 71045; 80053; 83690; 84484; 85025; 85610; 85730; 93005; 96374; 96375; 99284; A9270; J2060; J2270

== ENCOUNTER 2025-03-13 11:58 | Emergency (ER) | payer OTHER, SELFPAY ==
[2025-03-13 11:59] VITALS: BP 149/87; PULSE 77; RESP 16; TEMP 36.8; O2SAT 98
[2025-03-13 13:14] VITALS: BP 140/77; PULSE 75; RESP 16; TEMP 36.9; O2SAT 98
--- NOTE | 2025-03-13 13:14 | PC.NURSE ---
Pt came to front end architect, asking to have his blood sugar check. Blood sugar was 96, to states that result is good for him. Pt state he feels better and will be going home. Pt vitals were taken. Encouraged pt to stay and be seen. Pt declines and left without being seen.
== END 2025-03-13 14:14 | disposition left against medical advice (07) ==
LOC: ANHED 13:23
PROVIDERS: Emergency Provider Physician Assistant; PCP Internal Medicine Gastroenterology
DX: I10 Essential (primary) hypertension (principal)
CPT/HCPCS: 82948; 99199